=== PATIENT | female | born 1955 | race Asian ===

== ENCOUNTER 2019-11-15 11:53 | Outpatient (REF) | payer OTHER, SELFPAY | END 2019-11-15 11:54 | disposition home or self-care (01) | LOC: HO.LNP 11:53 | PROVIDERS: Visit Provider Nurse Practitioner Family | DX: R50.9 Fever, unspecified (principal); R53.83 Other fatigue; Z20.828 Contact with and (suspected) exposure to other viral communicable diseases | CPT/HCPCS: 87635 ==

== ENCOUNTER 2019-12-08 08:28 | Outpatient (REF) | payer OTHER, SELFPAY ==
[2019-12-08 11:37] LABS: Estimated Average Glucose 143 mg/dL; Hemoglobin A1c % 6.6 %
[2019-12-08 11:43] LABS: Alanine Aminotransferase 11 U/L (0-31); Anion Gap 14 (12-20); Aspartate Amino Transferase 15 U/L (5-31); Blood Urea Nitrogen 16 mg/dL (9-16); Calcium 9.4 mg/dL (8.4-10.2); Carbon Dioxide 29 mmol/L (22-29); Chloride 101 mmol/L (96-108); Cholesterol 228 mg/dL; Estimated Glomerular Filt Rate > 60; Glucose Fasting 134 mg/dL (60-99); HDL Cholesterol 59 mg/dL; LDL Cholesterol Calculated 139 mg/dl; Potassium 4.5 mmol/l (3.3-5.1); Sodium 139 mmol/L (135-145); Triglycerides 152 mg/dL
[2019-12-08 12:05] LABS: Vitamin D 25-OH Total 85.5 ng/mL (>30)
== END 2019-12-08 08:29 | disposition home or self-care (01) ==
LOC: HO.HMGCLDS 08:28
PROVIDERS: PCP Internal Medicine; Visit Provider Internal Medicine
DX: E11.9 Type 2 diabetes mellitus without complications (principal); E78.5 Hyperlipidemia, unspecified; I10 Essential (primary) hypertension; Z78.0 Asymptomatic menopausal state
CPT/HCPCS: 80048; 80061; 82306; 83036; 84450; 84460

== ENCOUNTER 2020-04-24 08:18 | Outpatient (REF) | payer OTHER, SELFPAY ==
[2020-04-24 11:31] LABS: Estimated Average Glucose 146 mg/dL; Hemoglobin A1c % 6.7 %
[2020-04-24 11:49] LABS: Alanine Aminotransferase 10 U/L (0-31); Anion Gap 14 (12-20); Aspartate Amino Transferase 15 U/L (5-31); Blood Urea Nitrogen 16 mg/dL (9-16); Calcium 9.4 mg/dL (8.4-10.2); Carbon Dioxide 28 mmol/L (22-29); Chloride 102 mmol/L (96-108); Cholesterol 205 mg/dL; Estimated Glomerular Filt Rate > 60; Glucose Fasting 130 mg/dL (60-99); HDL Cholesterol 57 mg/dL; LDL Cholesterol Calculated 117 mg/dl; Potassium 4.4 mmol/L (3.3-5.1); Sodium 140 mmol/L (135-145); Triglycerides 157 mg/dL
[2020-04-24 11:59] LABS: Vitamin D 25-OH Total 69.9 ng/mL (>30)
[2020-04-24 12:06] LABS: Creatinine Urine 128.71 mg/dL; Microalbum/Creatinine Ratio Ur 10.8 ug/mg cr
== END 2020-04-24 08:19 | disposition home or self-care (01) ==
LOC: HO.HMGCLDS 08:18
PROVIDERS: PCP Internal Medicine; Visit Provider Internal Medicine
DX: I10 Essential (primary) hypertension (principal); E78.5 Hyperlipidemia, unspecified; E11.9 Type 2 diabetes mellitus without complications
CPT/HCPCS: 36415; 80048; 80061; 82043; 82306; 83036; 84450; 84460

== ENCOUNTER 2020-08-02 08:01 | Outpatient (REF) | payer OTHER, SELFPAY ==
[2020-08-02 11:44] LABS: Estimated Average Glucose 151 mg/dL; Hemoglobin A1c % 6.9 %
[2020-08-02 11:55] LABS: Alanine Aminotransferase 10 U/L (0-31); Anion Gap 15 (12-20); Aspartate Amino Transferase 15 U/L (5-31); Blood Urea Nitrogen 17 mg/dL (9-16); Calcium 9.7 mg/dL (8.4-10.2); Carbon Dioxide 25 mmol/L (22-29); Chloride 105 mmol/L (96-108); Cholesterol 171 mg/dL; Estimated Glomerular Filt Rate > 60; Glucose Fasting 136 mg/dL (60-99); HDL Cholesterol 66 mg/dL; LDL Cholesterol Calculated 85 mg/dl; Sodium 141 mmol/L (135-145); Triglycerides 102 mg/dL
[2020-08-02 12:04] LABS: Vitamin D 25-OH Total 62.9 ng/mL (>30)
[2020-08-02 12:21] LABS: Folate 17.2 ng/mL (> or = 4.0); Vitamin B12 1400 pg/mL (200-900)
== END 2020-08-02 08:02 | disposition home or self-care (01) ==
LOC: HO.HMGCLDS 08:01
PROVIDERS: PCP Internal Medicine; Visit Provider Internal Medicine
DX: E78.5 Hyperlipidemia, unspecified (principal); E11.9 Type 2 diabetes mellitus without complications; I10 Essential (primary) hypertension
CPT/HCPCS: 36415; 80048; 80061; 82306; 82607; 82746; 83036; 84450; 84460

== ENCOUNTER 2020-10-20 12:05 | Outpatient (REF) | payer OTHER, SELFPAY ==
[2020-10-20 13:53] LABS: Estimated Average Glucose 194 mg/dL; Hemoglobin A1c % 8.4 %
== END 2020-10-20 12:06 | disposition home or self-care (01) ==
LOC: HO.HMGCLDS 12:05
PROVIDERS: PCP Internal Medicine; Visit Provider Internal Medicine
DX: I10 Essential (primary) hypertension (principal); E78.5 Hyperlipidemia, unspecified; E11.9 Type 2 diabetes mellitus without complications
CPT/HCPCS: 36415; 83036

== ENCOUNTER 2020-11-05 08:21 | Outpatient (REF) | payer OTHER, SELFPAY ==
[2020-11-05 12:00] LABS: Alanine Aminotransferase 13 U/L (0-31); Anion Gap 16 (12-20); Aspartate Amino Transferase 13 U/L (5-31); Blood Urea Nitrogen 9 mg/dL (9-16); Calcium 9.2 mg/dL (8.4-10.2); Carbon Dioxide 24 mmol/L (22-29); Chloride 103 mmol/L (96-108); Cholesterol 165 mg/dL; Estimated Glomerular Filt Rate > 60; Glucose Fasting 158 mg/dL (60-99); HDL Cholesterol 63 mg/dL; LDL Cholesterol Calculated 85 mg/dl; Potassium 4.1 mmol/L (3.3-5.1); Sodium 139 mmol/L (135-145); Triglycerides 89 mg/dL
== END 2020-11-05 08:22 | disposition home or self-care (01) ==
LOC: HO.HMGCLDS 08:21
PROVIDERS: PCP Internal Medicine; Visit Provider Internal Medicine
DX: E11.9 Type 2 diabetes mellitus without complications (principal); E78.5 Hyperlipidemia, unspecified; I10 Essential (primary) hypertension
CPT/HCPCS: 36415; 80048; 80061; 84450; 84460

== ENCOUNTER 2021-02-11 10:11 | Outpatient (REF) | payer MEDICARE, OTHER, SELFPAY ==
[2021-02-11 11:35] LABS: Estimated Average Glucose 160 mg/dL; Hemoglobin A1c % 7.2 %
== END 2021-02-11 10:12 | disposition home or self-care (01) ==
LOC: HO.HMGCLDS 10:11
PROVIDERS: PCP Internal Medicine; Visit Provider Internal Medicine
DX: E11.9 Type 2 diabetes mellitus without complications (principal)
CPT/HCPCS: 36415; 83036

== ENCOUNTER 2021-02-12 13:13 | Outpatient (REF) | payer MEDICARE, OTHER, SELFPAY ==
[2021-02-12 13:53] LABS: Appearance Urine CLEAR; Color Urine YELLOW; Glucose Urine UA NEG (NEG); Leukocyte Esterase Urine NEG (NEG); Nitrite Urine NEG (NEG); PH 5.5 (5.0-8.0); Specific Gravity - Urine 1.025 (1.005-1.025); Urine Blood NEG (NEG); Urine Ketones NEG (NEG); Urine Protein NEG (NEG-TRACE)
== END 2021-02-12 13:14 | disposition home or self-care (01) ==
LOC: HO.HMGCLNP 13:13
PROVIDERS: Visit Provider Internal Medicine
DX: R30.0 Dysuria (principal)
CPT/HCPCS: 81003

== ENCOUNTER 2021-12-11 08:43 | Outpatient (REF) | payer MEDICARE, OTHER, SELFPAY ==
[2021-12-11 12:24] LABS: Alanine Aminotransferase 25 U/L (0-31); Anion Gap 18 (12-20); Aspartate Amino Transferase 26 U/L (5-31); Blood Urea Nitrogen 15 mg/dL (9-16); Calcium 9.8 mg/dL (8.4-10.2); Carbon Dioxide 26 mmol/L (22-29); Chloride 102 mmol/L (96-108); Cholesterol 235 mg/dL; Estimated Glomerular Filt Rate > 60; Glucose Fasting 144 mg/dL (60-99); HDL Cholesterol 70 mg/dL; LDL Cholesterol Calculated 140 mg/dl; Potassium 4.7 mmol/L (3.3-5.1); Sodium 141 mmol/L (135-145); Triglycerides 127 mg/dL
[2021-12-11 12:35] LABS: Creatinine Urine 72.61 mg/dL; Microalbum/Creatinine Ratio Ur 17.9 ug/mg cr
[2021-12-11 12:36] LABS: Estimated Average Glucose 169 mg/dL; Hemoglobin A1c % 7.5 %
[2021-12-11 12:47] LABS: Vitamin D 25-OH Total 63.8 ng/mL (>30)
== END 2021-12-11 08:44 | disposition home or self-care (01) ==
LOC: HO.HMGCLDS 08:43
PROVIDERS: PCP Internal Medicine; Visit Provider Internal Medicine
DX: E11.65 Type 2 diabetes mellitus with hyperglycemia (principal); E78.5 Hyperlipidemia, unspecified; I10 Essential (primary) hypertension; M85.88 Other specified disorders of bone density and structure, other site
CPT/HCPCS: 36415; 80048; 80061; 82043; 82306; 83036; 84450; 84460

== ENCOUNTER 2022-03-25 07:23 | Outpatient (REF) | payer MEDICARE, OTHER, SELFPAY ==
[2022-03-25 11:49] LABS: Estimated Average Glucose 146 mg/dL; Hemoglobin A1c % 6.7 %
[2022-03-25 12:01] LABS: Alanine Aminotransferase 29 U/L (0-31); Anion Gap 15 (12-20); Aspartate Amino Transferase 24 U/L (5-31); Blood Urea Nitrogen 12 mg/dL (9-16); Calcium 9.6 mg/dL (8.4-10.2); Carbon Dioxide 24 mmol/L (22-29); Chloride 104 mmol/L (96-108); Cholesterol 212 mg/dL; Estimated Glomerular Filt Rate > 60; Glucose Fasting 159 mg/dL (60-99); HDL Cholesterol 59 mg/dL; LDL Cholesterol Calculated 134 mg/dl; Potassium 4.4 mmol/L (3.3-5.1); Sodium 139 mmol/L (135-145); Triglycerides 98 mg/dL
[2022-03-25 12:04] LABS: Vitamin D 25-OH Total 58.8 ng/mL (>30)
== END 2022-03-25 07:24 | disposition home or self-care (01) ==
LOC: HO.HMGCLDS 07:23
PROVIDERS: PCP Internal Medicine; Visit Provider Internal Medicine
DX: E78.5 Hyperlipidemia, unspecified (principal); I10 Essential (primary) hypertension; M85.88 Other specified disorders of bone density and structure, other site; N95.9 Unspecified menopausal and perimenopausal disorder; E11.65 Type 2 diabetes mellitus with hyperglycemia
CPT/HCPCS: 36415; 80048; 80061; 82306; 83036; 84450; 84460

== ENCOUNTER 2022-06-25 06:23 | Outpatient (REF) | payer MEDICARE, OTHER, SELFPAY ==
[2022-06-25 12:19] LABS: Estimated Average Glucose 166 mg/dL; Hemoglobin A1c % 7.4 %
[2022-06-25 12:56] LABS: Alanine Aminotransferase 40 U/L (0-31); Anion Gap 11 (12-20); Aspartate Amino Transferase 38 U/L (5-31); Blood Urea Nitrogen 10 mg/dL (9-16); Calcium 9.5 mg/dL (8.4-10.2); Carbon Dioxide 27 mmol/L (22-29); Chloride 107 mmol/L (96-108); Cholesterol 167 mg/dL; Estimated Glomerular Filt Rate > 60; Glucose Fasting 155 mg/dL (60-99); HDL Cholesterol 57 mg/dL; LDL Cholesterol Calculated 92 mg/dl; Potassium 4.2 mmol/L (3.3-5.1); Sodium 141 mmol/L (135-145); Triglycerides 91 mg/dL
== END 2022-06-25 06:24 | disposition home or self-care (01) ==
LOC: HO.HMGCLDS 06:23
PROVIDERS: PCP Internal Medicine; Visit Provider Internal Medicine
DX: E11.9 Type 2 diabetes mellitus without complications (principal); E78.5 Hyperlipidemia, unspecified
CPT/HCPCS: 36415; 80048; 80061; 83036; 84450; 84460

== ENCOUNTER 2022-12-19 07:15 | Outpatient (REF) | payer MEDICARE, OTHER, SELFPAY ==
[2022-12-19 11:59] LABS: Estimated Average Glucose 151 mg/dL; Hemoglobin A1c % 6.9 % (<6.0)
[2022-12-19 12:15] LABS: Alanine Aminotransferase 21 U/L (0-31); Anion Gap 12 (12-20); Aspartate Amino Transferase 23 U/L (5-31); Blood Urea Nitrogen 16 mg/dL (9-16); Calcium 9.2 mg/dL (8.4-10.2); Carbon Dioxide 26 mmol/L (22-29); Chloride 106 mmol/L (96-108); Cholesterol 163 mg/dL (<200); Estimated Glomerular Filt Rate > 60; Glucose Fasting 140 mg/dL (60-99); HDL Cholesterol 53 mg/dL (>40); LDL Cholesterol Calculated 91 mg/dL (<100); Potassium 4.2 mmol/L (3.3-5.1); Sodium 140 mmol/L (135-145); Triglycerides 96 mg/dL (<150)
[2022-12-19 12:28] LABS: Creatinine Urine 82.51 mg/dL; Microalbum/Creatinine Ratio Ur 9.6 ug/mg cr (<30)
[2022-12-19 12:50] LABS: Vitamin D 25-OH Total 87.2 ng/mL (>30)
== END 2022-12-19 07:16 | disposition home or self-care (01) ==
LOC: HO.HMGCLDS 07:15
PROVIDERS: PCP Internal Medicine; Visit Provider Internal Medicine
DX: E11.65 Type 2 diabetes mellitus with hyperglycemia (principal); I10 Essential (primary) hypertension; E78.5 Hyperlipidemia, unspecified; M85.88 Other specified disorders of bone density and structure, other site; Z78.0 Asymptomatic menopausal state
CPT/HCPCS: 36415; 80048; 80061; 82043; 82306; 82570; 83036; 84450; 84460

== ENCOUNTER 2022-12-22 09:35 | Outpatient (AMB) | payer MEDICARE, OTHER, SELFPAY ==
--- NOTE | 2022-12-22 09:41 | MHC.PC.OV ---
Vital Signs 12/22/22 09:42 Height 5 ft 1 in Weight 141 lb BMI 26.6 BP 138/80 Blood Pressure Location Lt brachial Position Sitting Pulse 79 Pulse Source Pulse Oximeter Pulse Oximetry (%) 97 Oxygen Delivery Method Room Air Intake Visit Reasons: PE/6m follow up Intake Note: Pt is here today for her PE Allergies acetaminophen [Percocet] Allergy (Unknown, Verified 12/22/22 10:00) anaphylaxis oxycodone [Percocet] Allergy (Unknown, Verified 12/22/22 10:00) anaphylaxis Medication List - Last Reconciled 12/22/22 by Karen Thompson MD ascorbic acid (vitamin C) 1 g PO ONCE blood sugar diagnostic (FreeStyle Lite Strips) Check fasting blood sugar twice a day blood sugar diagnostic (FreeStyle Lite Strips) check fasting glucose once a day calcium citrate 200 mg PO DAILY cholecalciferol (vitamin D3) 50 mcg PO DAILY lancets (FreeStyle Lancets) check fasting glucose once a day losartan 100 mg PO DAILY metformin 1,000 mg PO QPM metoprolol succinate ER 25 mg PO DAILY rosuvastatin 5 mg PO DAILY sitagliptin phos-metformin 100-1,000 mg ER (Janumet XR) 1 tab PO QAM 90 days zinc gluconate 50 mg PO DAILY Tobacco use date assessed: 12/22/22 Fall risk assessment: 1 Fall in past year Last assessed Fall Risk: 12/22/22 Dental Screening Dental Screen Date: 12/22/22 Did you have a dental visit in the last 12 months?: Yes Did you have a dental problem in the last 6 months where you did not have access to dental care?: No Was dental information given to patient?: Patient has dentist HPI PE/6m follow up HPI Details 67-year-old lady with history of breast cancer, has diabetes mellitus, hypertension, hyperlipidemia, and osteopenia lumbar spine, here today for a physical exam. She is overdue for screening mammogram, will be getting it scheduled when she comes [place] her [place] in [place] 2023; , is up-to-date with her screening colonoscopy due again for a recheck in 2027. She is up-to-date with her vaccines but has not yet had her COVID booster. Recent labs done showed hemoglobin A1c now at 6.9% and fasting lipids showing LDL cholesterol less than 100 mg/dL. Patient has been compliant with her medications and has been cutting back on her intake of carbs and junk food. She also has started exercising again . Complains of recurrent heartburn symptoms, usually at night when lying down. Denies any blood in stool, no nausea or vomiting. Patient not taking any medication for this complaint. [facility] Medical History (Updated 12/22/22 @ 10:30 by Karen Thompson MD) Diabetes mellitus with hyperglycemia, without long-term current use of insulin Osteopenia of lumbar spine Rash and nonspecific skin eruption Allergic contact dermatitis due to dyes Skin lesion of scalp Carcinoma of right breast with ductal and lobular features Essential hypertension Dyslipidemia Type 2 diabetes mellitus without complication, with no history of insulin use Surgical History History of section History of lumpectomy of right breast Family History Father Cancer of prostate Mother HTN (hypertension) Diabetes mellitus Stroke Sister No problems noted. Daughter No problems noted. Brother No problems noted. Brother No problems noted. Brother No problems noted. Brother No problems noted. Brother No problems noted. Brother No problems noted. Social History Housing: House Alcohol intake: never Patient Tobacco Use Status: Never used Tobacco e-Cigarette/Vaping Use: Never Used Second Hand Smoke Exposure: No service: No Current occupational status: retired Cognitive needs: No Hearing needs: No Vision needs: Yes Questionnaire PHQ-9 Over the last 2 weeks, how often have you been bothered by any of the following problems? 1. Little interest or pleasure in doing things: not at all 2. Feeling down, depressed, or hopeless: not at all 3. Trouble falling or staying asleep, or sleeping too much: not at all 4. Feeling tired or having little energy: not at all 5. Poor appetite or overeating: not at all 6. Feeling bad about yourself - or that you are a failure or have let yourself or your family down: not at all 7. Trouble concentrating on things, such as reading the newspaper or watching television: not at all 8. Moving or speaking so slowly that other people could have noticed. Or the opposite - being so fidgety or restless that you have been moving around a lot more than usual: not at all 9. Thoughts that you would be better off or of hurting yourself in some way: not at all Total score: 0 Depression Screening Interpretation: Negative Depression Screening Done: Yes 43888 - PHQ-9 Billing: Yes Source: Developed by Drs. Jorge Be, Deon Ugalde and colleagues, with an educational michael from [email or web address]. Thrive Questionnaire Date Thrive assessed: 03/26/22 SAGE-7 AMB Questionnaire SAGE-7 Date SAGE - 7 assessed: 03/26/22 Source: Developed by Drs. Jorge Be, Nicole Rodriguez, Deon Malcolm and colleagues, with an educational michael from [email or web address]. Review of Systems Const Reports no additional complaints, Denies fatigue, Denies headache(s) and Denies weakness Eyes Details: Goes to [facility] for her diabetes retinopathy screening, goes yearly Denies change in vision, Denies eye discharge and Denies itchy eyes ENT Denies dizziness, Denies headache(s), Denies nasal congestion, Denies nasal discharge and Denies sore throat Card Denies chest pain, Denies lightheadedness, Denies palpitations and Denies dyspnea Resp Denies chest congestion, Denies cough, Denies dyspnea and Denies wheezing GI Denies abdominal pain, Denies change in bowel habits and Denies heartburn Denies urinary frequency, Denies dysuria and Denies urinary urgency Musc Reports no additional complaints Skin/Breast Denies lesions and Denies rash Neuro Denies dizziness, Denies headache(s) and Denies weakness Psych Reports no additional complaints Endo Denies fatigue, Denies polydipsia, Denies polyuria and Denies palpitations Robson/Lymph Denies easy bruising Aller/Immun Denies itchy eyes, Denies seasonal rhinorrhea and Denies wheezing Physical exam (Primary Care) Vital Signs: Last Vital Signs Pulse 79 12/22/22 09:42 BP 138/80 12/22/22 09:42 Pulse Ox 97 12/22/22 09:42 Oxygen Delivery Method Room Air 12/22/22 09:42 BMI result Body Mass Index 26.6 Tobacco/Smoking Status: Tobacco use Status Tobacco use date assessed 12/22/22 12/22/22 09:44 Patient Tobacco Use Status Never used Tobacco 12/22/22 09:44 e-Cigarette/Vaping Use Never Used 12/22/22 09:44 Depression Screening Interpretation: Negative Thrive Assessment: Date of Thrive Assessment Date Thrive assessed 03/26/22 12/22/22 09:44 Const General: cooperative, comfortable and no acute distress Orientation/consciousness: patient oriented x3 Limitations: no limitations HENMT Mouth: Normal oral and palatal mucosa present, oropharynx normal and moist mucous membranes Eyes General: appearance normal, both eyes and all related structures Conjunctivae: conjunctivae normal Pupils: Equal, round and reactive pupils present EOM: EOMs intact bilaterally Neck Neck: Yes full ROM, Yes no lymphadenopathy and Yes supple Chest Chest palpation & inspection: normal inspection of the chest Breast/axilla palpation: normal palpation of the breasts Resp Effort & Inspection: normal respiratory effort and able to speak in complete sentences Auscultation: clear to auscultation bilaterally Cardio Rate: regular rate Rhythm: regular rhythm Heart sounds: S1 normal heart sound present and S2 normal heart sound present GI Inspection: Yes normal to inspection Palpation (GI): Soft to palpation, nontender and no masses Auscultation: normal bowel sounds General: Yes no CVA tenderness and Yes deferred Back/Spine/Pelvis Back: no CVA tenderness and No back tenderness Skin General skin exam: no rashes or lesions noted Neuro General: patient oriented x3, gait normal, tone normal, moves all extremities, Normal light touch and pain sensation, no focal motor deficits and normal sensation to monofilament Cranial nerves: Yes Equal, round and reactive pupils present Cognition (Neuro): normal cognition Gait exam (Neuro): Normal gait present Motor exam (neuro): 5/5 motor strength present throughout Extrem General: Yes full ROM, Yes no joint enlargement, Yes no clubbing, cyanosis or edema, Yes no calf tenderness and Yes normal gait Psych Appearance: grossly normal and well kempt Mental Status: mental status grossly normal Speech and movement: Normal speech and movement present Affect: normal affect Attitude: cooperative Thought process: Normal thought process present Results Reviewed Results Reviewed: Name: Annmarie Jefferson Age/Sex: 67/F : 1955 Unit#: [id number] Attend Dr: Karen Thompson MD Re12/19/22 Status: DEP REF Location: [id number] Disch: SPEC : [id number] NEIDA: 12/19/22 STATUS: COMP REQ : [id number] RECD: 12/19/22-[address]: Karen Thompson MD COMP: 12/19/220 ENTERED: 12/19/22 [facility] DR: ORDERED: Met Prof Fast, AST, ALT, Lipid Panel, Vitamin D 25-OH Test Result Flag Reference Site Sodium 140 135-145 mmol/L Potassium 4.2 3.3-5.1 mmol/L CL 106 96-108 mmol/L CO2 26 22-29 mmol/L Gap 12 12-20 BUN 16 9-16 mg/dL Creat 0.77 0.5-1.4 mg/dL EGFR > 60 NOTE: For -[place] individuals, multiply the result by 1.210. Chronic Kidney Disease: Estimated GFR < 60 mL/min/1.73m2 Severe Kidney Disease: Estimated GFR < 15 mL/min/1.73m2 FBS 140 H 60-99 mg/dL A fasting glucose of 126 mg/dl or greater on more than one occasion is considered diagnostic of diabetes. CA 9.2 8.4-10.2 mg/dL AST (GOT) 23 5-31 U/L ALT (GPT) 21 0-31 U/L Triglyceride 96 <150 mg/dL Desirable Triglyceride: less than 150 mg/dL Borderline High Triglyceride 150-199 mg/dL High Triglyceride: 200-499 mg/dL Very High Triglyceride: greater than or equal to 5OO mg/dL Cholesterol 163 <200 mg/dL Desirable Cholesterol: less than 200 mg/dL Borderline High Cholesterol: 200-239 mg/dL High Cholesterol: greater than 239 mg/dL LDL Calculated 91 <100 mg/dL Desirable LDL: less than 100 mg/dL Near Optimal/Above Optimal LDL: 110-129 mg/dL Borderline High LDL: 130-159 mg/dL High LDL: 160-189 mg/dL Very High LDL: greater than or equal to 190 mg/dL HDL 53 >40 mg/dL Desirable HDL: greater than 40 mg/dL Note: This HDL assay may give artificially low results in patients with liver disease. Vit D 25-OH Tot 87.2 >30 ng/mL Health Based Reference Values* < 20 ng/mL Deficient 20-30 ng/mL Insufficient > 30 ng/mL Sufficient Laboratory Tests 12/19/22 12/19/22 07:20 07:25 Estimat Average Glucose 151 Hemoglobin A1c % 6.9 H Urine Creatinine 82.51 Urine Microalbumin 8.0 Microalb/Creat Ratio 9.6 Assessment and Plan Assessment & Plan (1) Type 2 diabetes mellitus without complication, with no history of insulin use: Code(s): E11.9 - Type 2 diabetes mellitus without complications Plan: Recent lab results reviewed with patient, with sugar and hemoglobin A1c stable and at goal. Continue with metformin 1000 mg at night with supper and Janumet XR 1 tablet in a.m. with breakfast, continue to check fasting blood sugar at home, maintain log and bring to next appointment for review. Reinforced diabetic diet and regular exercise with patient. Counseled regarding importance of yearly diabetes retinopathy screening. Patient advised to inspect feet daily, for any signs of injury, callus or infection. Compliance with diet and regular exercise again stressed. Blood pressure goal is less than 130/80, goal LDL is less than 100 and goal hemoglobin A1c is less than 7% follow-up appointment made in--3-months, after fasting labs done. (2) Essential hypertension: Code(s): I10 - Essential (primary) hypertension Plan: Blood pressure goal is less than 130/80. Continue with metoprolol succinate ER 25 mg daily and losartan 100 mg daily. Reinforced importance of following a low sodium diet, getting regular exercise, and lowering stress levels. (3) Dyslipidemia: Code(s): E78.5 - Hyperlipidemia, unspecified Plan: Reviewed recent fasting lipid profile with patient with levels . Continue with rosuvastatin 5 mg daily , in addition to adherence to low-cholesterol diet and regular exercise, at least 30 minutes 3 to 4 times a week. Advised patient to make healthy food choices, eat more fruits, vegetables, whole grains, wild caught fish and low-fat dairy. Limit amount of meat and fried or fatty food products, as well as processed foods and fast foods. Follow-up scheduled with repeat fasting lipid panel in 3 months. (4) Annual visit for general adult medical examination with abnormal findings: Code(s): Z00.01 - Encounter for general adult medical examination with abnormal findings Plan: Recent fasting labs reviewed with patient.. Recommended dental visit every 6 months and regular eye exams, once a year. Take adequate calcium in diet and vitamin-D 3 at 2000 IU per cap once a day, in addition to weight-bearing exercises to help maintain good muscle tone and weight control. Instructed to do self-breast exam, and recommended to get yearly mammogram. Up-to-date with her screening colonoscopy. Reminded to get her COVID booster, up-to-date with her flu vaccine and pneumonia vaccine. A prescription was also written for her for Paxil her when she goes a broad, just in case she contracts COVID while traveling. Discussed with patient proper use of the medication, and discussed possible side effects of medication might ensue. Advised to reserve taking the medication only for severe clinical symptoms. (5) Osteopenia of lumbar spine: Code(s): M85.88 - Other specified disorders of bone density and structure, other site Plan: Continue with regular weight-bearing exercise, take adequate calcium from dietary sources, continue taking vitamin-D 3 supplements at least 2000 units daily. Orders: Orders Alanine Aminotransferase 04/06/23 E11.9 - Type 2 diabetes mellitus without complications, E78.5 - Hyperlipidemia, unspecified, I10 - Essential (primary) hypertension Basic Metabolic Panel Fasting 04/06/23 E11.9 - Type 2 diabetes mellitus without complications, E78.5 - Hyperlipidemia, unspecified, I10 - Essential (primary) hypertension Lipid Panel 04/06/23 E11.9 - Type 2 diabetes mellitus without complications, E78.5 - Hyperlipidemia, unspecified, I10 - Essential (primary) hypertension Hemoglobin A1c 04/06/23 E11.9 - Type 2 diabetes mellitus without complications, E78.5 - Hyperlipidemia, unspecified, I10 - Essential (primary) hypertension Aspartate Amino Transferase 04/06/23 E11.9 - Type 2 diabetes mellitus without complications, E78.5 - Hyperlipidemia, unspecified, I10 - Essential (primary) hypertension Medications: New nirmatrelvir-ritonavir 300 mg (150 mg x 2)-100 mg (Paxlovid) take TWO 150 mg tablets of nirmatrelvir with ONE 100 mg tablet of ritonavir twice daily for 5 days PO 30 ea 0RF famotidine 40 mg PO BEDTIME 90 tabs 0RF Refilled metoprolol succinate ER 25 mg PO DAILY 90 tabs 1RF losartan 100 mg PO DAILY 90 tabs 1RF Coding Level of Care Code Est Pt Prev Care >65y(63428) Diagnoses Type 2 diabetes mellitus without complication, with no history of insulin use E11.9 Essential hypertension I10 Dyslipidemia E78.5 Annual visit for general adult medical examination with abnormal findings Z00.01 Osteopenia of lumbar spine M85.88
[2022-12-22 09:42] VITALS: BP 138/80; PULSE 79; O2SAT 97; BMI 26.6
== END 2022-12-22 11:09 | disposition home or self-care (01) ==
PROVIDERS: Visit Provider Internal Medicine
DX: Z00.00 Encounter for general adult medical examination without abnormal findings (principal); E11.9 Type 2 diabetes mellitus without complications; I10 Essential (primary) hypertension; E78.5 Hyperlipidemia, unspecified; M85.88 Other specified disorders of bone density and structure, other site
CPT/HCPCS: 99397

== ENCOUNTER 2023-07-10 07:04 | Outpatient (REF) | payer MEDICARE, OTHER, SELFPAY ==
[2023-07-10 10:40] LABS: Estimated Average Glucose 174 mg/dL; Hemoglobin A1c % 7.7 % (<6.0)
[2023-07-10 10:48] LABS: Alanine Aminotransferase 20 U/L (0-31); Anion Gap 15 (12-20); Aspartate Amino Transferase 20 U/L (5-31); Blood Urea Nitrogen 18 mg/dL (9-16); Calcium 9.4 mg/dL (8.4-10.2); Carbon Dioxide 22 mmol/L (22-29); Chloride 107 mmol/L (96-108); Cholesterol 180 mg/dL (<200); Estimated Glomerular Filt Rate > 60; Glucose Fasting 165 mg/dL (60-99); HDL Cholesterol 57 mg/dL (>40); LDL Cholesterol Calculated 101 mg/dL (<100); Potassium 4.1 mmol/L (3.3-5.1); Sodium 140 mmol/L (135-145); Triglycerides 113 mg/dL (<150)
== END 2023-07-10 07:05 | disposition home or self-care (01) ==
LOC: HO.HMGCLDS 07:04
PROVIDERS: PCP Internal Medicine; Visit Provider Internal Medicine
DX: E11.9 Type 2 diabetes mellitus without complications (principal); I10 Essential (primary) hypertension; E78.5 Hyperlipidemia, unspecified
CPT/HCPCS: 36415; 80048; 80061; 83036; 84450; 84460

== ENCOUNTER 2023-07-15 08:26 | Outpatient (AMB) | payer MEDICARE, OTHER, SELFPAY ==
--- NOTE | 2023-07-15 08:50 | A.OFFPC_ITS ---
Vital Signs 07/15/23 08:51 Height 5 ft 1 in Weight 140 lb BMI 26.4 BP 132/80 Blood Pressure Location Rt brachial Position Sitting Pulse 77 Pulse Source Pulse Oximeter Pulse Oximetry (%) 97 Oxygen Delivery Method Room Air Intake Visit Reasons: PE Intake Note: Pt is here today for her PE: colonscopy 08/06/17, mammogram 04/20/23: bone density scan 02/19/21 Allergies acetaminophen [Percocet] Allergy (Unknown, Verified 12/08/23 15:48) anaphylaxis oxycodone [Percocet] Allergy (Unknown, Verified 12/08/23 15:48) anaphylaxis Medication List - Last Reconciled 07/15/23 by Karen Thompson MD ascorbic acid (vitamin C) 1 g PO ONCE blood sugar diagnostic (FreeStyle Lite Strips) Check fasting blood sugar twice a day blood sugar diagnostic (FreeStyle Lite Strips) check fasting glucose once a day calcium citrate 200 mg PO DAILY cholecalciferol (vitamin D3) 50 mcg PO DAILY Jardiance (empagliflozin) 10 mg PO DAILY NS lancets (FreeStyle Lancets) check fasting glucose once a day losartan 100 mg PO DAILY magnesium 250 mg PO DAILY metformin 1,000 mg PO QPM metoprolol succinate ER 25 mg PO DAILY rosuvastatin 5 mg PO DAILY sitagliptin phos-metformin 100-1,000 mg ER (Janumet XR) 1 tab PO QAM 90 days zinc gluconate 50 mg PO DAILY Tobacco use date assessed: 07/15/23 Fall risk assessment: No Falls in past year Last assessed Fall Risk: 07/15/23 Dental Screening Dental Screen Date: 07/15/23 Did you have a dental visit in the last 12 months?: Yes Did you have a dental problem in the last 6 months where you did not have access to dental care?: No Was dental information given to patient?: Patient has dentist HPI PE HPI Details 68-year-old lady here today for physical exam. She has diabetes mellitus with latest hemoglobin A1c at 7.7%. Currently on metformin a 1000 mg at night and Janumet 100-1000 mg in the morning. Has not been very compliant with her diet and no exercise at all.. Up-to-date with her diabetes retinopathy screening, goes to [facility] with no retinopathy seen. She has hyperlipidemia, takes rosuvastatin 5 mg 1 tablet 3 times a week, unable to take it every day as she has started experiencing seen muscle pains when she takes it daily. Up-to-date with her screening colonoscopy not due again until 2027 Had a bone density scan done 02/19/2021 which showed beginning osteopenia in AP spine with a T-score of -1.1, normal in hip and thigh. 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 Daughter No problems noted. Brother No problems noted. Brother No problems noted. Brother No problems noted. Brother No problems noted. Brother No problems noted. Brother No problems noted. Social History Housing: House Alcohol intake: never Patient Tobacco Use Status: Never used Tobacco e-Cigarette/Vaping Use: Never Used Second Hand Smoke Exposure: No service: No Current occupational status: retired Cognitive needs: No Hearing needs: No Vision needs: Yes Questionnaire PHQ-9 Over the last 2 weeks, how often have you been bothered by any of the following problems? 1. Little interest or pleasure in doing things: not at all 2. Feeling down, depressed, or hopeless: not at all 3. Trouble falling or staying asleep, or sleeping too much: not at all 4. Feeling tired or having little energy: not at all 5. Poor appetite or overeating: not at all 6. Feeling bad about yourself - or that you are a failure or have let yourself or your family down: not at all 7. Trouble concentrating on things, such as reading the newspaper or watching television: not at all 8. Moving or speaking so slowly that other people could have noticed. Or the opposite - being so fidgety or restless that you have been moving around a lot more than usual: not at all 9. Thoughts that you would be better off or of hurting yourself in some way: not at all Total score: 0 Depression Screening Interpretation: Negative Depression Screening Done: Yes 95690 - PHQ-9 Billing: Yes Source: Developed by Drs. Jorge Be, Nicole Rodriguez, Deon Malcolm and colleagues, with an educational michael from [employer]. Thrive Questionnaire Date Thrive assessed: 07/15/23 I am a: Patient What is your living situation today?: I have a steady place to live Within the past 12 months, did the food you bought not last and you didn't have the money to get more?: Never true Within the past 12 months, did you worry whether your food would run out before you got money to buy more?: Never true Do you have trouble paying for medicines?: No Do you have trouble getting transportation to medical appointments?: No Do you have trouble paying your heating and electricity bill?: No Do you have trouble taking care of your child, family member or friend?: No Are you currently unemployed and looking for a job?: No Are you interested in more education?: No THRIVE Score: 0 AUDIT C Alcohol Use Questionnaire (AUDIT-C) 1. How often do you have a drink containing alcohol?: Never Total Score: 0 SAGE-7 AMB Questionnaire SAGE-7 Date SAGE - 7 assessed: 07/15/23 Feeling nervous, anxious, or on edge: 0 = Not at all Not being able to stop or control worryin = Not at all Worrying too much about different things: 0 = Not at all Trouble relaxin = Not at all Being so restless that it is hard to sit still: 0 = Not at all Becoming easily annoyed or irritable: 0 = Not at all Feeling afraid as if something awful might happen: 0 = Not at all Total SAGE-7 score (0-4 normal; 5-9 mild; 10-14 moderate; 15-21 severe): 0 Source: Developed by Drs. Jorge Be, Deon Ugalde and colleagues, with an educational michael from [employer]. SAGE-7 Assessment Billing SAGE-7 Assessment Tool: SAGE-7 Assessment 22737 Review of Systems Const Denies fatigue, Denies headache(s) and Denies weakness Eyes Details: Goes to [facility] for her diabetes retinopathy screening, goes yearly Denies change in vision, Denies eye discharge and Denies itchy eyes ENT Denies dizziness, Denies headache(s), Denies nasal congestion, Denies nasal discharge and Denies sore throat Card Denies chest pain, Denies lightheadedness, Denies palpitations and Denies dyspnea Resp Denies chest congestion, Denies cough, Denies dyspnea and Denies wheezing GI Denies abdominal pain, Denies change in bowel habits and Denies heartburn Denies urinary frequency, Denies dysuria and Denies urinary urgency Musc Reports no additional complaints Skin/Breast Denies lesions and Denies rash Neuro Denies dizziness, Denies headache(s) and Denies weakness Psych Reports no additional complaints Endo Denies fatigue, Denies polydipsia, Denies polyuria and Denies palpitations Robson/Lymph Denies easy bruising Aller/Immun Denies itchy eyes, Denies seasonal rhinorrhea and Denies wheezing Physical exam (Primary Care) Vital Signs: Last Vital Signs Pulse 77 07/15/23 08:51 BP 132/80 07/15/23 08:51 Pulse Ox 97 07/15/23 08:51 Oxygen Delivery Method Room Air 07/15/23 08:51 BMI result Body Mass Index 26.4 Tobacco/Smoking Status: Tobacco use Status Tobacco use date assessed 07/15/23 07/15/23 08:56 Patient Tobacco Use Status Never used Tobacco 07/15/23 08:56 e-Cigarette/Vaping Use Never Used 07/15/23 08:56 PHQ-9: PHQ-9 Score PHQ-9: Total score 0 07/15/23 09:45 Depression Screening Interpretation: Negative Thrive Assessment: Date of Thrive Assessment Date Thrive assessed 07/15/23 07/15/23 09:14 Const General: cooperative, comfortable and no acute distress Orientation/consciousness: patient oriented x3 HENMT Mouth: Normal oral and palatal mucosa present, oropharynx normal and moist mucous membranes Eyes General: appearance normal, both eyes and all related structures Conjunctivae: conjunctivae normal Pupils: Equal, round and reactive pupils present EOM: EOMs intact bilaterally Neck Neck: Yes full ROM, Yes no lymphadenopathy and Yes supple Chest Chest palpation & inspection: normal inspection of the chest Breast/axilla palpation: normal palpation of the breasts Resp Effort & Inspection: normal respiratory effort and able to speak in complete sentences Auscultation: clear to auscultation bilaterally Cardio Rate: regular rate Rhythm: regular rhythm Heart sounds: S1 normal heart sound present and S2 normal heart sound present GI Inspection: Yes normal to inspection Palpation (GI): Soft to palpation, nontender and no masses Auscultation: normal bowel sounds General: Yes no CVA tenderness and Yes deferred Back/Spine/Pelvis Back: no CVA tenderness and No back tenderness Skin General skin exam: no rashes or lesions noted Neuro General: patient oriented x3, gait normal, tone normal, moves all extremities, Normal light touch and pain sensation, no focal motor deficits and normal sensation to monofilament Cranial nerves: Yes Equal, round and reactive pupils present Cognition (Neuro): normal cognition Gait exam (Neuro): Normal gait present Motor exam (neuro): 5/5 motor strength present throughout Extrem General: Yes full ROM, Yes no joint enlargement, Yes no clubbing, cyanosis or edema, Yes no calf tenderness and Yes normal gait Psych Appearance: grossly normal Mental Status: mental status grossly normal Speech and movement: Normal speech and movement present Affect: normal affect Attitude: cooperative Thought process: Normal thought process present Thought content: Normal thought content present Results Reviewed Results Reviewed: Laboratory Tests 07/10/23 07:22 Estimat Average Glucose 174 Hemoglobin A1c % 7.7 H Name: Annmarie Jefferson Age/Sex: 68/F : 1955 Unit#: [id number] Attend Dr: Karen Thompson MD Re07/10/23 Status: DEP REF Location: [facility] Disch: SPEC : [id number] NEIDA: 07/10/23 STATUS: COMP REQ : [id number] RECD: 07/10/23-[address]: Karen Thompson MD COMP: 07/10/238 ENTERED: 07/10/[address]: ORDERED: Met Prof Fast, AST, ALT, Lipid Panel Test Result Flag Reference Sodium 140 135-145 mmol/L Potassium 4.1 3.3-5.1 mmol/L CL 107 96-108 mmol/L CO2 22 22-29 mmol/L Gap 15 12-20 BUN 18 H 9-16 mg/dL Creat 0.80 0.5-1.4 mg/dL EGFR > 60 NOTE: For -[place] individuals, multiply the result by 1.210. Chronic Kidney Disease: Estimated GFR < 60 mL/min/1.73m2 Severe Kidney Disease: Estimated GFR < 15 mL/min/1.73m2 FBS 165 H 60-99 mg/dL A fasting glucose of 126 mg/dl or greater on more than one occasion is considered diagnostic of diabetes. CA 9.4 8.4-10.2 mg/dL AST (GOT) 20 5-31 U/L ALT (GPT) 20 0-31 U/L Triglyceride 113 <150 mg/dL Desirable Triglyceride: less than 150 mg/dL Borderline High Triglyceride 150-199 mg/dL High Triglyceride: 200-499 mg/dL Very High Triglyceride: greater than or equal to 5OO mg/dL Cholesterol 180 <200 mg/dL Desirable Cholesterol: less than 200 mg/dL Borderline High Cholesterol: 200-239 mg/dL High Cholesterol: greater than 239 mg/dL LDL Calculated 101 H <100 mg/dL Desirable LDL: less than 100 mg/dL Near Optimal/Above Optimal LDL: 110-129 mg/dL Borderline High LDL: 130-159 mg/dL High LDL: 160-189 mg/dL Very High LDL: greater than or equal to 190 mg/dL HDL 57 >40 mg/dL Desirable HDL: greater than 40 mg/dL Coding Level of Care Code Est Pt Prev Care >65y(64651) Diagnoses Annual visit for general adult medical examination with abnormal findings Z00.01 Type 2 diabetes mellitus without complication, with no history of insulin use E11.9 Dyslipidemia E78.5 Essential hypertension I10 Osteopenia of lumbar spine M85.88 Additional Codes SAGE-7 Assessment Billing - SAGE-7 Assessment Tool: SAGE-7 Assessment 00576 ([id number])
[2023-07-15 08:51] VITALS: BP 132/80; PULSE 77; O2SAT 97; BMI 26.4
== END 2023-07-15 09:43 | disposition home or self-care (01) ==
PROVIDERS: PCP Internal Medicine; Visit Provider Internal Medicine
DX: Z00.00 Encounter for general adult medical examination without abnormal findings (principal); E11.69 Type 2 diabetes mellitus with other specified complication; E78.5 Hyperlipidemia, unspecified; I10 Essential (primary) hypertension; M85.88 Other specified disorders of bone density and structure, other site
CPT/HCPCS: 99397

== ENCOUNTER 2023-10-10 08:12 | Outpatient (REF) | payer MEDICARE, OTHER, SELFPAY ==
[2023-10-10 11:43] LABS: Estimated Average Glucose 154 mg/dL
[2023-10-10 11:45] LABS: Alanine Aminotransferase 18 U/L (0-31); Anion Gap 13 (12-20); Aspartate Amino Transferase 18 U/L (5-31); Blood Urea Nitrogen 23 mg/dL (9-16); Calcium 9.7 mg/dL (8.4-10.2); Carbon Dioxide 24 mmol/L (22-29); Chloride 107 mmol/L (96-108); Cholesterol 157 mg/dL (<200); Estimated Glomerular Filt Rate > 60; Glucose Fasting 131 mg/dL (60-99); HDL Cholesterol 57 mg/dL (>40); LDL Cholesterol Calculated 84 mg/dL (<100); Potassium 4.3 mmol/L (3.3-5.1); Sodium 140 mmol/L (135-145); Triglycerides 83 mg/dL (<150)
[2023-10-10 11:52] LABS: Vitamin D 25-OH Total 110.7 ng/mL (>30)
[2023-10-10 12:04] LABS: Creatinine Urine 82.24 mg/dL; Microalbum/Creatinine Ratio Ur 8.5 ug/mg cr (<30)
== END 2023-10-10 08:13 | disposition home or self-care (01) ==
LOC: HO.HMGCLDS 08:12
PROVIDERS: PCP Internal Medicine; Visit Provider Internal Medicine
DX: Z00.01 Encounter for general adult medical examination with abnormal findings (principal); E11.9 Type 2 diabetes mellitus without complications; M85.88 Other specified disorders of bone density and structure, other site; I10 Essential (primary) hypertension; E78.5 Hyperlipidemia, unspecified
CPT/HCPCS: 36415; 80048; 80061; 82043; 82306; 82570; 83036; 84450; 84460

== ENCOUNTER 2023-10-14 11:45 | Outpatient (AMB) | payer MEDICARE, OTHER, SELFPAY ==
[2023-10-14 12:10] VITALS: BP 130/70; PULSE 66; O2SAT 97; BMI 25.7
--- NOTE | 2023-10-14 12:10 | MHC.PC.OV ---
Vital Signs 10/14/23 12:10 Height 5 ft 1 in Weight 136 lb 2 oz BMI 25.7 BP 130/70 Blood Pressure Location Rt brachial Position Sitting Pulse 66 Pulse Source Pulse Oximeter Pulse Oximetry (%) 97 Oxygen Delivery Method Room Air Intake Visit Reasons: 3M F/U DM HTN Labs Allergies acetaminophen [Percocet] Allergy (Unknown, Verified 10/14/23 12:25) anaphylaxis oxycodone [Percocet] Allergy (Unknown, Verified 10/14/23 12:25) anaphylaxis Medication List - Last Reconciled 10/14/23 by Karen Thompson MD ascorbic acid (vitamin C) 1 g PO ONCE blood sugar diagnostic (FreeStyle Lite Strips) Check fasting blood sugar twice a day blood sugar diagnostic (FreeStyle Lite Strips) check fasting glucose once a day calcium citrate 200 mg PO DAILY cholecalciferol (vitamin D3) 50 mcg PO DAILY Jardiance (empagliflozin) 10 mg PO DAILY NS lancets (FreeStyle Lancets) check fasting glucose once a day losartan 100 mg PO DAILY magnesium 250 mg PO DAILY metformin 1,000 mg PO QPM metoprolol succinate ER 25 mg PO DAILY rosuvastatin 5 mg PO DAILY sitagliptin phos-metformin 100-1,000 mg ER (Janumet XR) 1 tab PO QAM 90 days zinc gluconate 50 mg PO DAILY Tobacco use date assessed: 07/15/23 Fall risk assessment: No Falls in past year Last assessed Fall Risk: 10/14/23 Dental Screening Dental Screen Date: 10/14/23 Did you have a dental visit in the last 12 months?: Yes Did you have a dental problem in the last 6 months where you did not have access to dental care?: No Was dental information given to patient?: Patient has dentist HPI 3M F/U DM HTN Labs HPI Details 68 year-old lady here today with PMHx for diabetes mellitus, hyperlipidemia, and hypertension , here today for her follow-up. She has been compliant with taking her medications, with latest hemoglobin A1c at 7.7%, better than last checked.. Currently on metformin a 1000 mg at night and Janumet 100-1000 mg in the morning. Has been trying hard to stick to her recommended diet and has started to exercise.. Up-to-date with her diabetes retinopathy screening, goes to [facility] with no retinopathy seen. She has hyperlipidemia, takes rosuvastatin 5 mg 1 tablet 3 times a week, and blood pressure stable controlled on losartan 100 mg daily together with metoprolol 25 mg daily. FORMERLY [facility], [facility] Medical History Diabetes mellitus with hyperglycemia, without long-term current use of insulin Osteopenia of lumbar spine Allergic contact dermatitis due to dyes Carcinoma of right breast with ductal and lobular features Essential hypertension Dyslipidemia Surgical History History of section History of lumpectomy of right breast Family History Father Cancer of prostate Mother HTN (hypertension) Diabetes mellitus Stroke Sister No problems noted. Daughter No problems noted. Brother No problems noted. Brother No problems noted. Brother No problems noted. Brother No problems noted. Brother No problems noted. Brother No problems noted. Social History Housing: House Alcohol intake: never Patient Tobacco Use Status: Never used Tobacco e-Cigarette/Vaping Use: Never Used Second Hand Smoke Exposure: No service: No Current occupational status: retired Cognitive needs: No Hearing needs: No Vision needs: Yes Questionnaire PHQ-9 Over the last 2 weeks, how often have you been bothered by any of the following problems? 1. Little interest or pleasure in doing things: not at all 2. Feeling down, depressed, or hopeless: not at all 3. Trouble falling or staying asleep, or sleeping too much: not at all 4. Feeling tired or having little energy: not at all 5. Poor appetite or overeating: not at all 6. Feeling bad about yourself - or that you are a failure or have let yourself or your family down: not at all 7. Trouble concentrating on things, such as reading the newspaper or watching television: not at all 8. Moving or speaking so slowly that other people could have noticed. Or the opposite - being so fidgety or restless that you have been moving around a lot more than usual: not at all 9. Thoughts that you would be better off or of hurting yourself in some way: not at all Total score: 0 Depression Screening Interpretation: Negative Depression Screening Done: Yes 11595 - PHQ-9 Billing: Yes Source: Developed by Drs. Jorge Be, Nicole Rodriguez, Deon Malcolm and colleagues, with an educational michael from [employer]. Thrive Questionnaire Date Thrive assessed: 07/15/23 I am a: Patient What is your living situation today?: I have a steady place to live Within the past 12 months, did the food you bought not last and you didn't have the money to get more?: I choose not to answer this question Within the past 12 months, did you worry whether your food would run out before you got money to buy more?: I choose not to answer this question Do you have trouble paying for medicines?: No Do you have trouble getting transportation to medical appointments?: No Do you have trouble paying your heating and electricity bill?: No Do you have trouble taking care of your child, family member or friend?: No Do you have trouble with day-to-day activities such as bathing, preparing meals, shopping, managing finances, etc.?: No Are you currently unemployed and looking for a job?: No Are you interested in more education?: No Please select the resources that you would like help with: None Currently or been in a relationship where the following occur: I choose not to answer THRIVE Score: 0 AUDIT C Alcohol Use Questionnaire (AUDIT-C) 1. How often do you have a drink containing alcohol?: Never Total Score: 0 SAGE-7 AMB Questionnaire SAGE-7 Date SAGE - 7 assessed: 07/15/23 Feeling nervous, anxious, or on edge: 0 = Not at all Not being able to stop or control worryin = Not at all Worrying too much about different things: 0 = Not at all Trouble relaxin = Not at all Being so restless that it is hard to sit still: 0 = Not at all Becoming easily annoyed or irritable: 0 = Not at all Feeling afraid as if something awful might happen: 0 = Not at all Total SAGE-7 score (0-4 normal; 5-9 mild; 10-14 moderate; 15-21 severe): 0 Source: Developed by Nicole Anderson Kurt Kroenke and colleagues, with an educational michael from [employer]. SAGE-7 Assessment Billing SAGE-7 Assessment Tool: SAGE-7 Assessment 05619 Review of Systems Const Denies fatigue, Denies headache(s) and Denies weakness Eyes Details: Goes to [facility] for her diabetes retinopathy screening, goes yearly Denies change in vision, Denies eye discharge and Denies itchy eyes ENT Denies dizziness, Denies headache(s), Denies nasal congestion, Denies nasal discharge and Denies sore throat Card Denies chest pain, Denies lightheadedness, Denies palpitations and Denies dyspnea Resp Denies chest congestion, Denies cough, Denies dyspnea and Denies wheezing GI Denies abdominal pain, Denies change in bowel habits and Denies heartburn Denies urinary frequency, Denies dysuria and Denies urinary urgency Musc Reports no additional complaints Skin/Breast Denies lesions and Denies rash Neuro Denies dizziness, Denies headache(s) and Denies weakness Psych Reports no additional complaints Endo Denies fatigue, Denies polydipsia, Denies polyuria and Denies palpitations Robson/Lymph Denies easy bruising Aller/Immun Denies itchy eyes, Denies seasonal rhinorrhea and Denies wheezing Physical exam (Primary Care) Vital Signs: Last Vital Signs Pulse 66 10/14/23 12:10 BP 130/70 10/14/23 12:10 Pulse Ox 97 10/14/23 12:10 Oxygen Delivery Method Room Air 10/14/23 12:10 BMI result Body Mass Index 25.7 Tobacco/Smoking Status: Tobacco use Status Tobacco use date assessed 07/15/23 10/14/23 12:10 Patient Tobacco Use Status Never used Tobacco 10/14/23 12:10 e-Cigarette/Vaping Use Never Used 10/14/23 12:10 PHQ-9: PHQ-9 Score PHQ-9: Total score 0 10/14/23 12:27 Depression Screening Interpretation: Negative Thrive Assessment: Date of Thrive Assessment Date Thrive assessed 07/15/23 10/14/23 12:10 Currently or been in a relationship where the following occur: I choose not to answer Const General: cooperative, comfortable and no acute distress Orientation/consciousness: patient oriented x3 HENMT Mouth: Normal oral and palatal mucosa present, oropharynx normal and moist mucous membranes Eyes General: appearance normal, both eyes and all related structures Conjunctivae: conjunctivae normal Pupils: Equal, round and reactive pupils present EOM: EOMs intact bilaterally Neck Neck: Yes full ROM, Yes no lymphadenopathy and Yes supple Chest Chest palpation & inspection: normal inspection of the chest Breast/axilla palpation: normal palpation of the breasts Resp Effort & Inspection: normal respiratory effort and able to speak in complete sentences Auscultation: clear to auscultation bilaterally Cardio Rate: regular rate Rhythm: regular rhythm Heart sounds: S1 normal heart sound present and S2 normal heart sound present GI Inspection: Yes normal to inspection Palpation (GI): Soft to palpation, nontender and no masses Auscultation: normal bowel sounds General: Yes no CVA tenderness and Yes deferred Back/Spine/Pelvis Back: no CVA tenderness and No back tenderness Skin General skin exam: no rashes or lesions noted Neuro General: patient oriented x3, gait normal, tone normal, moves all extremities, Normal light touch and pain sensation, no focal motor deficits and normal sensation to monofilament Cranial nerves: Yes Equal, round and reactive pupils present Cognition (Neuro): normal cognition Gait exam (Neuro): Normal gait present Motor exam (neuro): 5/5 motor strength present throughout Extrem General: Yes full ROM, Yes no joint enlargement, Yes no clubbing, cyanosis or edema, Yes no calf tenderness and Yes normal gait Results Reviewed Results Reviewed: Name: Annmarie Jefferson Age/Sex: 68/F : 1955 Unit#: [id number] Attend Dr: Karen Thompson MD Re10/10/23 Status: DEP REF Location: [facility] Disch: SPEC : [id number] NEIDA: 10/10/23 STATUS: COMP REQ : [id number] RECD: 10/10/23-[address]: Karen Thompson MD COMP: 10/10/23115 ENTERED: 10/10/[address]: ORDERED: Met Prof Fast, AST, ALT, Lipid Panel, Vitamin D 25-OH Test Result Flag Reference Sodium 140 135-145 mmol/L Potassium 4.3 3.3-5.1 mmol/L CL 107 96-108 mmol/L CO2 24 22-29 mmol/L Gap 13 12-20 BUN 23 H 9-16 mg/dL Creat 0.86 0.5-1.4 mg/dL EGFR > 60 NOTE: For -[place] individuals, multiply the result by 1.210. Chronic Kidney Disease: Estimated GFR < 60 mL/min/1.73m2 Severe Kidney Disease: Estimated GFR < 15 mL/min/1.73m2 FBS 131 H 60-99 mg/dL A fasting glucose of 126 mg/dl or greater on more than one occasion is considered diagnostic of diabetes. CA 9.7 8.4-10.2 mg/dL AST (GOT) 18 5-31 U/L ALT (GPT) 18 0-31 U/L Triglyceride 83 <150 mg/dL Desirable Triglyceride: less than 150 mg/dL Borderline High Triglyceride 150-199 mg/dL High Triglyceride: 200-499 mg/dL Very High Triglyceride: greater than or equal to 5OO mg/dL Cholesterol 157 <200 mg/dL Desirable Cholesterol: less than 200 mg/dL Borderline High Cholesterol: 200-239 mg/dL High Cholesterol: greater than 239 mg/dL LDL Calculated 84 <100 mg/dL Desirable LDL: less than 100 mg/dL Near Optimal/Above Optimal LDL: 110-129 mg/dL Borderline High LDL: 130-159 mg/dL High LDL: 160-189 mg/dL Very High LDL: greater than or equal to 190 mg/dL HDL 57 >40 mg/dL Desirable HDL: greater than 40 mg/dL Note: This HDL assay may give artificially low results in patients with liver disease. Vit D 25-OH Tot 110.7 >30 ng/mL Health Based Reference Values* < 20 ng/mL Deficient 20-30 ng/mL Insufficient > 30 ng/mL Sufficient Laboratory Tests 10/10/23 08:15 Estimat Average Glucose 154 Hemoglobin A1c % 7.0 H Urine Creatinine 82.24 Urine Microalbumin 7.0 Microalb/Creat Ratio 8.5 Assessment and Plan Assessment & Plan (1) Type 2 diabetes mellitus without complication, with no history of insulin use: Code(s): E11.9 - Type 2 diabetes mellitus without complications Plan: Improving glucose control now with hemoglobin A1c at 7.7%. Continue with current treatment, and stressed importance of adhering to recommended diet getting regular exercise. Up-to-date with her diabetes retinopathy screening. Will see her back for follow-up in 05/29/2024 after she gets back from the [facility] (2) Essential hypertension: Code(s): I10 - Essential (primary) hypertension Plan: Blood pressure at goal of less than 130/80. Continue with losartan and metoprolol succinate. Reinforced importance of following a low sodium diet, getting regular exercise, and lowering stress levels. (3) Dyslipidemia: Code(s): E78.5 - Hyperlipidemia, unspecified Plan: Reviewed recent fasting lipid profile with patient with levels within normal limits . Continue rosuvastatin 5 mg , in addition to adherence to low-cholesterol diet and regular exercise, at least 30 minutes 3 to 4 times a week. Advised patient to make healthy food choices, eat more fruits, vegetables, whole grains, wild caught fish and low-fat dairy. Limit amount of meat and fried or fatty food products, as well as processed foods and fast foods. Follow-up scheduled with repeat fasting lipid panel in 05/2024. Medications: Refilled Jardiance (empagliflozin) 10 mg PO DAILY 30 tabs 3RF NS Coding Level of Care Code Est Pt Level 4 (67083) Complex EM visit Add On G2211 Diagnoses Type 2 diabetes mellitus without complication, with no history of insulin use E11.9 Essential hypertension I10 Dyslipidemia E78.5 Additional Codes SAGE-7 Assessment Billing - SAGE-7 Assessment Tool: SAGE-7 Assessment 75413 ([id number])
== END 2023-10-14 12:45 | disposition home or self-care (01) ==
PROVIDERS: PCP Internal Medicine; Visit Provider Internal Medicine
DX: E11.69 Type 2 diabetes mellitus with other specified complication (principal); I10 Essential (primary) hypertension; E78.5 Hyperlipidemia, unspecified
CPT/HCPCS: 99214; G2211

== ENCOUNTER 2023-11-30 09:12 | Outpatient (AMB) | payer MEDICARE, OTHER, SELFPAY ==
--- NOTE | 2023-11-30 10:14 | AM.OFFWIN_ITS ---
Intake Vital Signs 11/30/23 10:20 Height 5 ft 1 in Weight 134 lb BMI 25.3 BP 138/70 Blood Pressure Location Rt brachial Position Sitting Pulse 92 Pulse Source Pulse Oximeter Temp 98.1 F Temp Source Oral Pulse Oximetry (%) 98 Oxygen Delivery Method Room Air Intake Visit Reasons: EP ear ache & throat can barely speak [phone] Intake Note: Patient here for bilat ear pain, and loss of voice which has been present for about 2 days. Patient Tobacco Use Status: Never used Tobacco Allergies acetaminophen [Percocet] Allergy (Unknown, Verified 11/30/23 10:15) anaphylaxis oxycodone [Percocet] Allergy (Unknown, Verified 11/30/23 10:15) anaphylaxis Do you need a note to return to daycare/school/sports/work: No HPI EP ear ache & throat can barely speak [phone] HPI Details This note is constructed using voice recognition software. While every effort has been made to ensure accuracy, import manager errors may have been included. The patient is a 68 year old female who presents to the clinic today with ear pain, and lost voice for the past 2 days. She denies fever, chills, cough, shortness of breath, body aches, she does note that she has allergies this time of year and has been taking her Zyrtec. She has had no other sick contacts. [facility] Medical History Diabetes mellitus with hyperglycemia, without long-term current use of insulin Osteopenia of lumbar spine Allergic contact dermatitis due to dyes Carcinoma of right breast with ductal and lobular features Essential hypertension Dyslipidemia Surgical History History of section History of lumpectomy of right breast Family History Father Cancer of prostate Mother HTN (hypertension) Diabetes mellitus Stroke Sister No problems noted. Daughter No problems noted. Brother No problems noted. Brother No problems noted. Brother No problems noted. Brother No problems noted. Brother No problems noted. Brother No problems noted. Social History Housing: House Alcohol intake: never Patient Tobacco Use Status: Never used Tobacco e-Cigarette/Vaping Use: Never Used Second Hand Smoke Exposure: No service: No Current occupational status: retired Cognitive needs: No Hearing needs: No Vision needs: Yes Review of Systems Const All systems reviewed & are unremarkable except as noted in HPI and below Physical Exam Vital Signs: Last Vital Signs Temp 98.1 F 11/30/23 10:20 Pulse 92 11/30/23 10:20 BP 138/70 11/30/23 10:20 Pulse Ox 98 11/30/23 10:20 Oxygen Delivery Method Room Air 11/30/23 10:20 BMI result Body Mass Index 25.3 Const General: cooperative, healthy appearing, comfortable and no acute distress Orientation/consciousness: patient oriented x3 Limitations: no limitations HEENT Head: Yes normal to inspection Ears: hearing grossly normal bilaterally, external ears normal and TM abnormal retracted General nose exam: Normal external nose present, No nasal discharge present and Abnormal mucous membranes and turbinates present boggy and pale Face and sinus: Yes normal facial exam and Yes sinuses nontender Mouth: Normal oral and palatal mucosa present and moist mucous membranes Throat: Yes tonsils normal, Yes uvula midline, Yes posterior oropharynx abnormal (Erythema), Yes postnasal drainage and Yes cobblestoning Eyes General: appearance normal, both eyes and all related structures Neck Neck: Yes normal visual inspection Resp Effort & Inspection: normal respiratory effort, able to speak in complete sentences, Actively coughing, no respiratory distress, not tachypneic, no tripod positioning and no use of accessory muscles Auscultation: clear to auscultation bilaterally Cardio Rate: regular rate Rhythm: regular rhythm Heart sounds: normal S1 and S2 Skin General skin exam: no rashes or lesions noted Neuro General: patient oriented x3 Extrem General: Yes normal to inspection and Yes no clubbing, cyanosis or edema Assessment & Plan Assessment & Plan (1) Allergic rhinitis: Code(s): J30.9 - Allergic rhinitis, unspecified Qualifiers: Allergic rhinitis trigger: pollen Allergic rhinitis seasonality: seasonal Qualified Code(s): J30.1 - Allergic rhinitis due to pollen Plan: Supportive measures encouraged and reviewed. Advised patient to try a Flonase nasal spray and second-generation antihistamine such as Zyrtec, Claritin, Marianne or similar. Consider expectorant therapy [id number] such as Mucinex. Advised consideration of sinus rinse if needed. Short burst of prednisone prescribed for symptomatic management, patient will try this if the [id number] measures are not effective. Advised patient to follow up with primary care provider with worsening or failure to resolve. Plan See above for full details and plan. Medications: New prednisone 40 mg (2 x 20 mg) PO DAILY 3 days 6 tabs 0RF Coding Level of Care Code Est Pt Level 3 (74365) Diagnoses Seasonal allergic rhinitis due to pollen J30.1 Allergic rhinitis trigger: pollen Allergic rhinitis seasonality: seasonal
[2023-11-30 10:20] VITALS: BP 138/70; PULSE 92; TEMP 36.7; O2SAT 98; BMI 25.3
== END 2023-11-30 10:43 | disposition home or self-care (01) ==
PROVIDERS: PCP Internal Medicine; Visit Provider Registered Nurse
DX: J30.1 Allergic rhinitis due to pollen (principal)

== ENCOUNTER → 2023-11-30 09:12 | Outpatient (BNVA) | payer MEDICARE, OTHER, SELFPAY | PROVIDERS: PCP Internal Medicine; Visit Provider Registered Nurse | DX: J30.1 Allergic rhinitis due to pollen (principal) | CPT/HCPCS: 99212 ==

== ENCOUNTER 2024-05-16 10:43 | Outpatient (REF) | payer MEDICARE, OTHER, SELFPAY ==
--- OUTSIDE RECORDS SUMMARY | 2024-05-16 12:42 | XMS_ITS | Patient Health Record ---
Author Organization [employer] [facility] Address [address] [place] [address] Care Team Providers Care Frame Wirer Name Role Phone JOSIE PAK MD Primary Care Provider Nayana Barraza Unavailable [phone] Allergies Allergen (clinical drug ingredient) Drug/Non Drug Allergy documented on EMR Reaction Allergy Type Onset Date Status acetaminophen / oxycodone PERCOSET (uncoded) DIFFICULTY BREATHING Allergy Active Reason For Referral No Information Medications Medication SIG (Take, Route, Fr equency, Duration) Notes Start Date End Date Status Aspirin EC 81MG 1 ORAL daily for -3 [facility] 12/30/2010 Active losartan 100MG 1 ORAL daily for -3 [facility] 06/06/2013 Active metFORMIN HCl 500MG 1 ORAL twice daily for -3 [facility] 05/11 Active Simvastatin 40MG 1 ORAL daily for -3 [facility] 12/30/2010 Active Vitamin D3 1000 IU 1 ORAL daily for -3 [facility] 12/30/2010 Active Calcium 1 tab Oral Active Januvia Active Problems Problem Type SNOMED Code ICD Code Onset Dates Problem Status W/U Status Risk Notes Problem Urinary incontinence (345710183) Unspecified urinary incontinence (R32) Active confirmed Problem SI - Stress incontinence (97216099) Stress incontinence (female) (male) (N39.3) Active confirmed Problem Malignant neoplasm of female breast (952705166) Malignant neoplasm of other specified sites of female breast (174.8) Active confirmed Diag Problem Type II diabetes mellitus without complication (581687807) Diabetes mellitus without mention of complication, type II or unspecified type, not stated as uncontrolled (250.00) Active confirmed Major Problem Hyperlipidemia (51523003) Other and unspecified hyperlipidemia (272.4) Active confirmed Major Problem Essential hypertension (30641097) Unspecified essential hypertension (401.9) Active confirmed Major Problem Menopausal symptom (80207709) Symptomatic menopausal or female climacteric states (627.2) Active confirmed Major Problem Postmenopausal atrophic vaginitis (59762501) Postmenopausal atrophic vaginitis (627.3) Active confirmed Diag Problem Gynecological examination normal (539352643208215) Routine gynecological examination (V72.31) Active confirmed Problem Screening for malignant neoplasm of colon (226454673) Special screening for malignant neoplasms, colon (V76.51) Active confirmed Major Plan Of Treatment Pending Test Test Name Order Date MAMMOGRAM, SCREENING 06/06/2014 Urinalysis 08/27/2017 COMPLETE URINALYSIS 08/27/2017 Insurance Providers Payer Name Payer Address Payer Phone Subscriber Number Group Number Insured Name Patient Relationship to Insured Coverage Start Date Coverage End Date [facility] [address] [facility] [place] [id number] [phone] [id number] NAOMI ELIZONDO Self - patient is the insured Medical (General) History Medical History History ICD Code Postmenopausal atrophic vaginitis 627.3 Malignant neoplasm of other specified [place] of female breast 174.8 Diabetes mellitus without me ntion of complication, type II or unspecified type, not stated as uncontrolled 250.00 Other and unspecified hyperlipidemia 272 .4 Unspecified essential hypertension 401.9 Symptomatic menopausal or female climact glory states 627.2 Surgical History Surgery Date(Month/Year) RT LUMPECTOMY - CANCER COLONOSCOPY Hospitalization History Reason Date(Month/Year) SEE SURGICAL HX 1 Vaginal Delivery
[2024-05-16 13:33] LABS: Estimated Average Glucose 160 mg/dL; Hemoglobin A1C 207.7141 umol/L; Hemoglobin A1c % 7.2 % (<6.0); Total Hemoglobin (HGBA1C) 3743.5749 umol/L
[2024-05-16 14:15] LABS: Creatinine Urine 103.33 mg/dL; Microalbum/Creatinine Ratio Ur 16.4 ug/mg cr (<30)
[2024-05-16 14:21] LABS: Anion Gap 12 (12-20)
[2024-05-16 14:26] LABS: Alanine Aminotransferase 22 U/L (0-31); Aspartate Amino Transferase 28 U/L (5-31); Blood Urea Nitrogen 20 mg/dL (9-16); Calcium 9.3 mg/dL (8.4-10.2); Carbon Dioxide 25 mmol/L (22-29); Chloride 108 mmol/L (96-108); Estimated Glomerular Filt Rate > 60; Glucose Fasting 128 mg/dL (60-99); Sodium 141 mmol/L (135-145)
== END 2024-05-16 10:44 | disposition home or self-care (01) ==
LOC: HO.HMGCLDS 10:43
PROVIDERS: PCP Internal Medicine; Visit Provider Internal Medicine
DX: E11.9 Type 2 diabetes mellitus without complications (principal); M85.88 Other specified disorders of bone density and structure, other site; I10 Essential (primary) hypertension; E78.5 Hyperlipidemia, unspecified
CPT/HCPCS: 36415; 80048; 82043; 82306; 82570; 83036; 84450; 84460

== ENCOUNTER 2024-05-17 09:16 | Outpatient (AMB) | payer MEDICARE, OTHER, SELFPAY ==
[2024-05-17 09:19] VITALS: BP 132/70; PULSE 77; RESP 16; O2SAT 98; BMI 25.7
--- NOTE | 2024-05-17 09:19 | MHC.PC.OV ---
Vital Signs 05/17/24 09:19 Height 5 ft 1 in Weight 136 lb BMI 25.7 BP 132/70 Blood Pressure Location Rt brachial Position Sitting Respiration 16 Pulse 77 Pulse Source Pulse Oximeter Pulse Oximetry (%) 98 Oxygen Delivery Method Room Air Intake Visit Reasons: 6M F/U DM HTN Labs Allergies acetaminophen [Percocet] Allergy (Unknown, Verified 05/23/24 03:10) anaphylaxis oxycodone [Percocet] Allergy (Unknown, Verified 05/23/24 03:10) anaphylaxis Medication List - Last Reconciled 05/23/24 by Karen Thompson MD ascorbic acid (vitamin C) 1 g PO ONCE blood sugar diagnostic (FreeStyle Lite Strips) Check fasting blood sugar twice a day blood sugar diagnostic (FreeStyle Lite Strips) check fasting glucose once a day calcium citrate 200 mg PO DAILY Janumet XR 100-1,000 mg (sitagliptin phos-metformin) 1 tab PO QAM 90 days NS Jardiance (empagliflozin) 25 mg PO DAILY NS lancets (FreeStyle Lancets) check fasting glucose once a day losartan 100 mg PO DAILY magnesium 250 mg PO DAILY metformin 1,000 mg PO BIDWMEAL 3 months metoprolol succinate ER 25 mg PO DAILY rosuvastatin 5 mg PO DAILY zinc gluconate 50 mg PO DAILY Tobacco use date assessed: 05/17/24 Fall risk assessment: No Falls in past year Last assessed Fall Risk: 05/17/24 Dental Screening Dental Screen Date: 05/17/24 Did you have a dental visit in the last 12 months?: Yes Did you have a dental problem in the last 6 months where you did not have access to dental care?: No Was dental information given to patient?: Patient has dentist HPI 6M F/U DM HTN Labs HPI Details 61-year-old lady here today for follow-up on her diabetes mellitus, hypertension and dyslipidemia. Has been taking her medicines as directed, but just returned back from a vacation, and admits that she has not been compliant at all with her diet. Latest fasting labs showed normal electrolytes, renal function, but hemoglobin A1c is higher at 7.2% compared to last check. Has been experiencing intermittent episodes of sharp pain in left wrist joint just below the thumb, especially on flexion extension of thumb. Has not been taking any medications for this. [facility] Medical History Tendinitis, de Quervain's Diabetes mellitus with hyperglycemia, without long-term current use of insulin Osteopenia of lumbar spine Allergic contact dermatitis due to dyes Carcinoma of right breast with ductal and lobular features Essential hypertension Dyslipidemia Surgical History History of section History of lumpectomy of right breast Family History Father Cancer of prostate Mother HTN (hypertension) Diabetes mellitus Stroke Sister No problems noted. Daughter No problems noted. Brother No problems noted. Brother No problems noted. Brother No problems noted. Brother No problems noted. Brother No problems noted. Brother No problems noted. Social History Housing: House Alcohol intake: never Patient Tobacco Use Status: Never used Tobacco e-Cigarette/Vaping Use: Never Used Second Hand Smoke Exposure: No service: No Current occupational status: retired Cognitive needs: No Hearing needs: No Vision needs: Yes Questionnaire PHQ-9 Over the last 2 weeks, how often have you been bothered by any of the following problems? Depression Screening Interpretation: Negative Depression Screening Done: Yes Source: Developed by Drs. Jorge Be, Nicole Rodriguez, Deon Malcolm and colleagues, with an educational michael from [employer]. Thrive Questionnaire Date Thrive assessed: 05/17/24 I am a: Patient What is your living situation today?: I have a steady place to live Within the past 12 months, did the food you bought not last and you didn't have the money to get more?: Never true Within the past 12 months, did you worry whether your food would run out before you got money to buy more?: Never true Do you have trouble paying for medicines?: No Do you have trouble getting transportation to medical appointments?: No Do you have trouble paying your heating and electricity bill?: No Do you have trouble taking care of your child, family member or friend?: No Do you have trouble with day-to-day activities such as bathing, preparing meals, shopping, managing finances, etc.?: No Are you currently unemployed and looking for a job?: No Are you interested in more education?: No Please select the resources that you would like help with: None Currently or been in a relationship where the following occur: I choose not to answer THRIVE Score: 0 AUDIT C Alcohol Use Questionnaire (AUDIT-C) 1. How often do you have a drink containing alcohol?: Monthly or less Total Score: 1 SAGE-7 AMB Questionnaire SAGE-7 Date SAGE - 7 assessed: 05/17/24 Feeling nervous, anxious, or on edge: 0 = Not at all Not being able to stop or control worryin = Not at all Worrying too much about different things: 0 = Not at all Trouble relaxin = Not at all Being so restless that it is hard to sit still: 0 = Not at all Becoming easily annoyed or irritable: 0 = Not at all Feeling afraid as if something awful might happen: 0 = Not at all Total SAGE-7 score (0-4 normal; 5-9 mild; 10-14 moderate; 15-21 severe): 0 Source: Developed by Drs. Jorge Be, Nicole Rodriguez, Deon Malcolm and colleagues, with an educational michael from [employer]. Review of Systems Const All systems reviewed & are unremarkable except as noted in HPI and below Denies fatigue, Denies headache(s) and Denies weakness Eyes Details: Goes to [facility] for her diabetes retinopathy screening, goes yearly Denies change in vision, Denies eye discharge and Denies itchy eyes ENT Denies dizziness, Denies headache(s), Denies nasal congestion, Denies nasal discharge and Denies sore throat Card Denies chest pain, Denies lightheadedness, Denies palpitations and Denies dyspnea Resp Denies chest congestion, Denies cough, Denies dyspnea and Denies wheezing GI Denies abdominal pain, Denies change in bowel habits and Denies heartburn Denies urinary frequency, Denies dysuria and Denies urinary urgency Musc Reports as per HPI, Reports arthralgias, Denies joint swelling and Denies muscle weakness Skin/Breast Denies lesions and Denies rash Neuro Denies dizziness, Denies headache(s) and Denies weakness Psych Reports no additional complaints Endo Denies fatigue, Denies polydipsia, Denies polyuria and Denies palpitations Robson/Lymph Denies easy bruising Aller/Immun Denies itchy eyes, Denies seasonal rhinorrhea and Denies wheezing Physical exam (Primary Care) Vital Signs: Last Vital Signs Pulse 77 05/17/24 09:19 Resp 16 05/17/24 09:19 BP 132/70 05/17/24 09:19 Pulse Ox 98 05/17/24 09:19 Oxygen Delivery Method Room Air 05/17/24 09:19 BMI result Body Mass Index 25.7 Tobacco/Smoking Status: Tobacco use Status Tobacco use date assessed 05/17/24 05/17/24 09:21 Patient Tobacco Use Status Never used Tobacco 05/17/24 09:21 e-Cigarette/Vaping Use Never Used 05/17/24 09:21 Depression Screening Interpretation: Negative Thrive Assessment: Date of Thrive Assessment Date Thrive assessed 05/17/24 05/17/24 09:25 Currently or been in a relationship where the following occur: I choose not to answer Const General: cooperative, comfortable and no acute distress Orientation/consciousness: patient oriented x3 HENMT Mouth: Normal oral and palatal mucosa present, oropharynx normal and moist mucous membranes Eyes General: appearance normal, both eyes and all related structures Conjunctivae: conjunctivae normal Pupils: Equal, round and reactive pupils present EOM: EOMs intact bilaterally Neck Neck: Yes full ROM, Yes no lymphadenopathy and Yes supple Chest Chest palpation & inspection: normal inspection of the chest Breast/axilla palpation: normal palpation of the breasts Resp Effort & Inspection: normal respiratory effort and able to speak in complete sentences Auscultation: clear to auscultation bilaterally Cardio Rate: regular rate Rhythm: regular rhythm Heart sounds: S1 normal heart sound present and S2 normal heart sound present GI Inspection: Yes normal to inspection Palpation (GI): Soft to palpation, nontender and no masses Auscultation: normal bowel sounds General: Yes no CVA tenderness and Yes deferred Back/Spine/Pelvis Back: no CVA tenderness and No back tenderness Skin General skin exam: no rashes or lesions noted Neuro General: patient oriented x3, gait normal, tone normal, moves all extremities, Normal light touch and pain sensation, no focal motor deficits and normal sensation to monofilament Cranial nerves: Yes Equal, round and reactive pupils present Cognition (Neuro): normal cognition Gait exam (Neuro): Normal gait present Motor exam (neuro): 5/5 motor strength present throughout Extrem Other: Positive Ysabel's test on left wrist General: Yes full ROM, Yes no joint enlargement, Yes no clubbing, cyanosis or edema, Yes no calf tenderness and Yes normal gait Coding Level of Care Code Est Pt Level 4 (99888) Complex EM visit Add On G2211 Diagnoses Diabetes mellitus with hyperglycemia, without long-term current use of insulin E11.65 Essential hypertension I10 Tendinitis, de Quervain's M65.4 Dyslipidemia E78.5 Assessment & Plan Assessment & Plan (1) Diabetes mellitus with hyperglycemia, without long-term current use of insulin: Code(s): E11.65 - Type 2 diabetes mellitus with hyperglycemia Category: Medical Plan: Reviewed recent fasting lab results with patient. With hemoglobin A1c now at 7.2%. Stressed importance of following recommended diabetic diet and getting regular exercise. Will continue on metformin a 1000 mg 1 tablet once a day, Janumet 1000-500 mg daily, and increased dose of Jardiance to 25 mg daily . reminded to get her yearly diabetes retinopathy screening and diabetes foot exam. Reminded to get yearly flu shots, and COVID booster (2) Essential hypertension: Code(s): I10 - Essential (primary) hypertension Category: Medical Plan: Blood pressure at goal of less than 130/80. Continue with current medication. Reinforced importance of following a low sodium diet, getting regular exercise, and lowering stress levels. (3) Tendinitis, de Quervain's: Code(s): M65.4 - Radial styloid tenosynovitis [de Quervain] Category: Medical Plan: Advised to try massaging Salonpas to affected area 3 times a day as needed, and referred to orthopedics (4) Dyslipidemia: Code(s): E78.5 - Hyperlipidemia, unspecified Category: Medical Plan: Continue rosuvastatin 5 mg daily, in addition to adherence to healthy eating habits and getting regular exercise. Orders: Orders Hemoglobin A1c 08/13/24 E11.65 - Type 2 diabetes mellitus with hyperglycemia, E78.5 - Hyperlipidemia, unspecified, I10 - Essential (primary) hypertension, M85.88 - Other specified disorders of bone density and structure, other site Vitamin D 25-OH Total 08/13/24 E11.65 - Type 2 diabetes mellitus with hyperglycemia, E78.5 - Hyperlipidemia, unspecified, I10 - Essential (primary) hypertension, M85.88 - Other specified disorders of bone density and structure, other site Lipid Panel 08/13/24 E11.65 - Type 2 diabetes mellitus with hyperglycemia, E78.5 - Hyperlipidemia, unspecified, I10 - Essential (primary) hypertension, M85.88 - Other specified disorders of bone density and structure, other site Aspartate Amino Transferase 08/13/24 E11.65 - Type 2 diabetes mellitus with hyperglycemia, E78.5 - Hyperlipidemia, unspecified, I10 - Essential (primary) hypertension, M85.88 - Other specified disorders of bone density and structure, other site Alanine Aminotransferase 08/13/24 E11.65 - Type 2 diabetes mellitus with hyperglycemia, E78.5 - Hyperlipidemia, unspecified, I10 - Essential (primary) hypertension, M85.88 - Other specified disorders of bone density and structure, other site Basic Metabolic Panel Fasting 08/13/24 E11.65 - Type 2 diabetes mellitus with hyperglycemia, E78.5 - Hyperlipidemia, unspecified, I10 - Essential (primary) hypertension, M85.88 - Other specified disorders of bone density and structure, other site Referrals Orthopedics Referral M65.4 - Radial styloid tenosynovitis [de Quervain] Medications: Changed From Jardiance (empagliflozin) 10 mg PO DAILY 90 tabs 1RF NS E11.65 - Type 2 diabetes mellitus with hyperglycemia To Jardiance (empagliflozin) 25 mg PO DAILY 90 tabs 3RF NS E11.65 - Type 2 diabetes mellitus with hyperglycemia From sitagliptin phos-metformin 100-1,000 mg ER (Janumet XR) 1 tab PO QAM 90 tabs 1RF 90 days E11.9 - Type 2 diabetes mellitus without complications To Janumet XR 100-1,000 mg (sitagliptin phos-metformin) 1 tab PO QAM 90 days 90 tabs 4RF NS E11.9 - Type 2 diabetes mellitus without complications Refilled losartan 100 mg PO DAILY 90 tabs 4RF I10 - Essential (primary) hypertension rosuvastatin 5 mg PO DAILY 90 tabs 3RF E11.9 - Type 2 diabetes mellitus without complications, E78.5 - Hyperlipidemia, unspecified
== END 2024-05-17 10:01 | disposition home or self-care (01) ==
LOC: HO.HMCC 09:16
PROVIDERS: PCP Internal Medicine; Visit Provider Internal Medicine
DX: E11.65 Type 2 diabetes mellitus with hyperglycemia (principal); I10 Essential (primary) hypertension; M65.4 Radial styloid tenosynovitis [de Quervain]; E78.5 Hyperlipidemia, unspecified

== ENCOUNTER → 2024-05-17 09:16 | Outpatient (BNVA) | payer MEDICARE, OTHER, SELFPAY | PROVIDERS: PCP Internal Medicine; Visit Provider Internal Medicine | DX: I10 Essential (primary) hypertension (principal); E78.5 Hyperlipidemia, unspecified; E11.65 Type 2 diabetes mellitus with hyperglycemia; M65.4 Radial styloid tenosynovitis [de Quervain]; M85.88 Other specified disorders of bone density and structure, other site | CPT/HCPCS: 96127; 99212 ==

== ENCOUNTER 2024-06-15 12:43 | Outpatient (AMB) | payer MEDICARE, OTHER, SELFPAY ==
--- NOTE | 2024-06-15 13:19 | A.OFFVIS_ITS ---
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 States her pain is below her CMC joint. Pain is triggered with flexion of hand, twisting, when extending her thumb and when cooking (using a knife). States she has been using a brace along with warm compress which alleviates pain temporary. Also has hx of Bilateral hand CTS and O.A. EMG done many years ago as per patient. Last A1C done on 05/16/24 - 7.4- patient had just returned from the [facility]. Allergies acetaminophen [Percocet] Allergy (Unknown, Verified 06/15/24 13:31) anaphylaxis oxycodone [Percocet] Allergy (Unknown, Verified 06/15/24 13:31) anaphylaxis HPI HPI LOBSTER CATCHER- LT Radial styloid tenosynovitis de Quervain: Details: Annmarie is a 69 year old right hand dominant woman who presents for left wrist pain. She complains of left radial sided wrist pain, worse with pinching, gripping, or thumb flexion. She says holding a knife in the kitchen is particularly painful. She denies any prior treatment options, and has been wearing a brace. She reports a Hx of bilateral carpal tunnel syndrome & hand OA. Her NCS was done several years ago at [facility]. She says she has intermittent numbness and tingling in the median nerve distribution bilaterally. This does not occur every day & is tolerable. She denies any prior treatment She is a Diabetic, her most recent HgA1c was 7.2% on 03/24/24. She is a retired nurse. [facility] Medical History Tendinitis, de Quervain's Diabetes mellitus with hyperglycemia, without long-term current use of insulin Osteopenia of lumbar spine Allergic contact dermatitis due to dyes Carcinoma of right breast with ductal and lobular features Essential hypertension Dyslipidemia Surgical History History of section History of lumpectomy of right breast Family History Father Cancer of prostate Mother HTN (hypertension) Diabetes mellitus Stroke Sister No problems noted. Daughter No problems noted. Brother No problems noted. Brother No problems noted. Brother No problems noted. Brother No problems noted. Brother No problems noted. Brother No problems noted. Social History Housing: House Alcohol intake: never Patient Tobacco Use Status: Never used Tobacco e-Cigarette/Vaping Use: Never Used Second Hand Smoke Exposure: No service: No Current occupational status: retired Cognitive needs: No Hearing needs: No Vision needs: Yes Review of Systems Const All systems reviewed & are unremarkable except as noted in HPI and below Physical Exam Vital Signs: BMI result Body Mass Index 25.7 Const General: cooperative, healthy appearing and no acute distress Orientation/consciousness: patient oriented x3 HEENT Head: Yes normocephalic and Yes atraumatic Eyes EOM: EOMs intact bilaterally Resp Effort & Inspection: normal respiratory effort and able to speak in complete sentences Cardio Jugular venous distension: no JVD Skin General skin exam: turgor normal Rashes: no rashes Neuro General: patient oriented x3 Extrem Other: Evaluation of Left Upper Extremity: The patient is alert, oriented, and in no acute distress Neuro: Median, Ulnar, Radial nerves motor and sensory intact and sensation is normal to the tips of all digits Vascular: Cap refill brisk ROM: She can make a fist and extend all her digits No locking or catching Skin: No lacerations or abrasions. General: No Ecchymosis. No Erythema or evidence of infection. TTP 1st dorsal compartment Pos Ysabel test on the left Neg Ysabel test on the right No tenderness over the MCP joint, basal joint, or a1 cem Psych Appearance: grossly normal Affect: normal affect Attitude: cooperative Office Procedures AMB Fracture Care Details: No fracture, injection Fracture Billing Code: Fracture Billing Code Assessment & Plan Assessment & Plan (1) Tendinitis, de Quervain's: Comment: L Code(s): M65.4 - Radial styloid tenosynovitis [de Quervain] Category: Medical (2) Diabetes mellitus with hyperglycemia, without long-term current use of insulin: Code(s): E11.65 - Type 2 diabetes mellitus with hyperglycemia Category: Medical (3) Bilateral carpal tunnel syndrome: Code(s): G56.03 - Carpal tunnel syndrome, bilateral upper limbs Category: Medical Plan Assessment & Plan: 1. Left De Quervains tenosynovitis Positive Ysabel test I educated her about this condition I discussed operative and non-operative treatment options The patient would like to proceed with an injection I discussed activity modification, they should limit or avoid any heavy or repetitive pinching or gripping activities She was fitted for a comfort cool brace to wear with daily activity She should work on ROM exercises, and avoid any gripping or strengthening activities Injection #1: The risks and benefits of a steroid injection including but not limited to risk of damage to blood vessels, nerves, tendons, infection, skin bleaching, failure to improve symptoms, increased pain, and possible need for further injections or other intervention were discussed with the patient and the patient wishes to proceed with the steroid injection. Once consent was obtained, I sterilely prepped the area over the 1st dorsal compartment of the Left thumb. I then injected the 1st dorsal compartment with a combination of 1 mL of dexamethasone (4mg/ml), and 1% lidocaine. The patient tolerated the procedure well with no complications and good resolution of their symptoms prior to leaving clinic. If the patient continues to have pain 6-8 weeks following this injection, they may call to schedule appointment to discuss alternative treatment options She will follow up prn 2. Bilateral hand numbness In the median nerve distribution Symptoms intermittent & occasional, worse with activity Patient reports NCS done several years ago at [facility], no copy provided today I educated her about this condition, and the risks of delaying treatment I discussed operative treatment options If her symptoms increase in frequency or severity she can follow up to discuss surgery Otherwise she can follow up prn Scribed for Anne Orona MD by James Laura, medical collector, on 06/15/24 at 2:05 PM, EST. Coding Level of Care Code New Pt Level 4 (69953) Diagnoses Tendinitis, de Quervain's M65.4 Diabetes mellitus with hyperglycemia, without long-term current use of insulin E11.65 Bilateral carpal tunnel syndrome G56.03 CPT Codes Fracture Care - Fracture Billing Code: Fracture Billing Code ([id number])
[2024-06-15 13:20] VITALS: BMI 25.7
--- OUTSIDE RECORDS SUMMARY | 2024-06-15 13:46 | XMS_ITS | Patient Health Record ---
Author Organization [facility] Address [address] [place] [address] Care Team Providers Care Community Services Coordinator Name Role Phone JOSIE PAK MD Primary Care Provider Nayana Barraza Unavailable [phone] Allergies Allergen (clinical drug ingredient) Drug/Non Drug Allergy documented on EMR Reaction Allergy Type Onset Date Status acetaminophen / oxycodone PERCOSET (uncoded) DIFFICULTY BREATHING Allergy Active Reason For Referral No Information Medications Medication SIG (Take, Route, Fr equency, Duration) Notes Start Date End Date Status Aspirin EC 81MG 1 ORAL daily for -3 [facility] 12/30/2010 Active losartan 100MG 1 ORAL daily for -3 [facility] 06/06/2013 Active metFORMIN HCl 500MG 1 ORAL twice daily for -3 [facility] 05/11 Active Simvastatin 40MG 1 ORAL daily for -3 [facility] 12/30/2010 Active Vitamin D3 1000 IU 1 ORAL daily for -3 [facility] 12/30/2010 Active Calcium 1 tab Oral Active Januvia Active Problems Problem Type SNOMED Code ICD Code Onset Dates Problem Status W/U Status Risk Notes Problem Urinary incontinence (612242104) Unspecified urinary incontinence (R32) Active confirmed Problem SI - Stress incontinence (46914248) Stress incontinence (female) (male) (N39.3) Active confirmed Problem Malignant neoplasm of female breast (307187700) Malignant neoplasm of other specified sites of female breast (174.8) Active confirmed Diag Problem Type II diabetes mellitus without complication (422649445) Diabetes mellitus without mention of complication, type II or unspecified type, not stated as uncontrolled (250.00) Active confirmed Major Problem Hyperlipidemia (39561348) Other and unspecified hyperlipidemia (272.4) Active confirmed Major Problem Essential hypertension (36263478) Unspecified essential hypertension (401.9) Active confirmed Major Problem Menopausal symptom (64689866) Symptomatic menopausal or female climacteric states (627.2) Active confirmed Major Problem Postmenopausal atrophic vaginitis (36530313) Postmenopausal atrophic vaginitis (627.3) Active confirmed Diag Problem Gynecological examination normal (599681779378577) Routine gynecological examination (V72.31) Active confirmed Problem Screening for malignant neoplasm of colon (784774690) Special screening for malignant neoplasms, colon (V76.51) Active confirmed Major Plan Of Treatment Pending Test Test Name Order Date MAMMOGRAM, SCREENING 06/06/2014 Urinalysis 08/27/2017 COMPLETE URINALYSIS 08/27/2017 Insurance Providers Payer Name Payer Address Payer Phone Subscriber Number Group Number Insured Name Patient Relationship to Insured Coverage Start Date Coverage End Date [facility] [address] [place] [id number] ELIZONDO Self - patient is [...]
== END 2024-06-15 14:21 | disposition home or self-care (01) ==
LOC: HO.HOS 12:44
PROVIDERS: PCP Internal Medicine; Visit Provider Orthopaedic Surgery
DX: M65.4 Radial styloid tenosynovitis [de Quervain] (principal); E11.65 Type 2 diabetes mellitus with hyperglycemia; G56.03 Carpal tunnel syndrome, bilateral upper limbs
CPT/HCPCS: 20550; 99204

== ENCOUNTER → 2024-06-15 12:43 | Outpatient (BNVA) | payer MEDICARE, OTHER, SELFPAY | PROVIDERS: PCP Internal Medicine; Visit Provider Orthopaedic Surgery | DX: M65.4 Radial styloid tenosynovitis [de Quervain] (principal); E11.65 Type 2 diabetes mellitus with hyperglycemia; G56.03 Carpal tunnel syndrome, bilateral upper limbs | CPT/HCPCS: 20550; 99202; J1100; J2003 ==

== ENCOUNTER 2024-08-16 08:05 | Outpatient (REF) | payer MEDICARE, OTHER, SELFPAY ==
[2024-08-16 11:44] LABS: Alanine Aminotransferase 18 U/L (0-31); Anion Gap 13 (12-20); Aspartate Amino Transferase 25 U/L (5-31); Blood Urea Nitrogen 22 mg/dL (9-16); Calcium 9.0 mg/dL (8.4-10.2); Carbon Dioxide 23 mmol/L (22-29); Chloride 108 mmol/L (96-108); Cholesterol 178 mg/dL (<200); Estimated Glomerular Filt Rate > 60; HDL Cholesterol 63 mg/dL (>40); Hemoglobin A1C 202.9685 umol/L; Potassium 3.9 mmol/L (3.3-5.1); Sodium 140 mmol/L (135-145); Total Hemoglobin (HGBA1C) 3487.2495 umol/L; Triglycerides 122 mg/dL (<150)
== END 2024-08-16 08:06 | disposition home or self-care (01) ==
LOC: HO.HMGCLDS 08:05
PROVIDERS: PCP Internal Medicine; Visit Provider Internal Medicine
DX: E11.65 Type 2 diabetes mellitus with hyperglycemia (principal); M85.88 Other specified disorders of bone density and structure, other site; I10 Essential (primary) hypertension; E78.5 Hyperlipidemia, unspecified
CPT/HCPCS: 36415; 80048; 80061; 82306; 83036; 84450; 84460

== ENCOUNTER 2024-08-18 11:10 | Outpatient (AMB) | payer MEDICARE, OTHER, SELFPAY ==
--- NOTE | 2024-08-18 11:45 | A.OFFPC_ITS ---
Vital Signs 08/18/24 11:47 Height 5 ft 1 in Weight 139 lb BMI 26.3 BP 124/70 Blood Pressure Location Rt brachial Position Sitting Respiration 16 Pulse 74 Pulse Source Pulse Oximeter Temp 98.1 F Temp Source Oral Pulse Oximetry (%) 98 Oxygen Delivery Method Room Air Intake Visit Reasons: PE Intake Note: Pt is here today for her PE: last mammogram, colonoscopy 08/06/17 Allergies acetaminophen (Percocet) Allergy (Unknown, Verified 08/18/24 12:36) anaphylaxis oxycodone (Percocet) Allergy (Unknown, Verified 08/18/24 12:36) anaphylaxis Medication List - Last Reconciled 08/18/24 by Karen Thompson MD ascorbic acid (vitamin C) 1 g PO ONCE blood sugar diagnostic (FreeStyle Lite Strips) Check fasting blood sugar twice a day blood sugar diagnostic (FreeStyle Lite Strips) check fasting glucose once a day calcium citrate 200 mg PO DAILY Januvia (sitagliptin phosphate) 100 mg PO DAILY NS Jardiance (empagliflozin) 25 mg PO DAILY NS lancets (FreeStyle Lancets) check fasting glucose once a day losartan 100 mg PO DAILY magnesium 250 mg PO DAILY metformin 1,000 mg PO BIDWMEAL 3 months metoprolol succinate ER 25 mg PO DAILY rosuvastatin 5 mg PO DAILY zinc gluconate 50 mg PO DAILY Tobacco use date assessed: 08/18/24 Fall risk assessment: No Falls in past year Last assessed Fall Risk: 08/18/24 Dental Screening Dental Screen Date: 08/18/24 Did you have a dental visit in the last 12 months?: Yes Did you have a dental problem in the last 6 months where you did not have access to dental care?: No Was dental information given to patient?: Patient has dentist HPI PE HPI Details 69-year-old lady here today for physical exam. Hypertension stable controlled on losartan and metoprolol, has dyslipidemia currently stable controlled on rosuvastatin 5 mg taken once a day. She has diabetes mellitus which is still poorly controlled, with latest hemoglobin A1c at 7.5%. Patient currently on Janumet and metformin. She is overdue for her diabetes eye scree bar[place], has not been compliant with following her diet and does not get any regular exercise except for occasional yd work. She is up-to-date with her screening mammogram but has not yet had her bone de nsity scan done, even though order was sent to [facility] earlier this year. Up-to-date with her screening colonoscopy, due again in 2027. She is up-to-date with all her vaccines [facility] Medical History Tendinitis, de Quervain's Diabetes mellitus with hyperglycemia, without long-term current use of insulin Osteopenia of lumbar spine Allergic contact dermatitis due to dyes Carcinoma of right breast with ductal and lobular features Essential hypertension Dyslipidemia Surgical History History of section History of lumpectomy of right breast Family History Father Cancer of prostate Mother HTN (hypertension) Diabetes mellitus Stroke Sister No problems noted. Daughter No problems noted. Brother No problems noted. Brother No problems noted. Brother No problems noted. Brother No problems noted. Brother No problems noted. Brother No problems noted. Social History Housing: House Alcohol intake: never Patient Tobacco Use Status: Never used Tobacco e-Cigarette/Vaping Use: Never Used Second Hand Smoke Exposure: No service: No Current occupational status: retired Cognitive needs: No Hearing needs: No Vision needs: Yes Questionnaire PHQ-9 Over the last 2 weeks, how often have you been bothered by any of the following problems? Depression Screening Interpretation: Negative Depression Screening Done: Yes Source: Developed by Drs. Jorge Be, Nicole Rodriguez, Deon Malcolm and colleagues, with an educational mcihael from [employer]. Thrive Questionnaire Date Thrive assessed: 05/14/24 I am a: Patient What is your living situation today?: I have a steady place to live Within the past 12 months, did the food you bought not last and you didn't have the money to get more?: Never true Within the past 12 months, did you worry whether your food would run out before you got money to buy more?: Never true Do you have trouble paying for medicines?: No Do you have trouble getting transportation to medical appointments?: No Do you have trouble paying your heating and electricity bill?: No Do you have trouble taking care of your child, family member or friend?: No Do you have trouble with day-to-day activities such as bathing, preparing meals, shopping, managing finances, etc.?: No Are you currently unemployed and looking for a job?: No Are you interested in more education?: No Please select the resources that you would like help with: None Currently or been in a relationship where the following occur: No concerns repo rted THRIVE Score: 0 SAGE-7 AMB Questionnaire SAGE-7 Date SAGE - 7 assessed: 05/17/24 Source: Developed by Drs. Jorge Be, Nicole Rodriguez, Deon Malcolm and colleagues, with an educational michael from [employer]. Review of Systems Const All systems reviewed & are unremarkable except as noted in HPI and below Denies fatigue, Denies headache(s) and Denies weakness Eyes Details: Goes to [facility] for her diabetes retinopathy screening, goes yearly Denies change in vision, Denies eye discharge and Denies itchy eyes ENT Denies dizziness, Denies headache(s), Denies nasal congestion, Denies nasal discharge and Denies sore throat Card Denies chest pain, Denies lightheadedness, Denies palpitations and Denies dyspnea Resp Denies chest congestion, Denies cough, Denies dyspnea and Denies wheezing GI Denies abdominal pain, Denies change in bowel habits and Denies heartburn Denies urinary frequency, Denies dysuria and Denies urinary urgency Musc Reports arthralgias (Mainly in wrists), Denies joint swelling and Denies muscle weakness Skin/Breast Denies lesions and Denies rash Neuro Denies dizziness, Denies headache(s) and Denies weakness Psych Reports no additional complaints Endo Denies fatigue, Denies polydipsia, Denies polyuria and Denies palpitations Robson/Lymph Denies easy bleeding and Denies easy bruising Aller/Immun Denies itchy eyes, Denies seasonal rhinorrhea and Denies wheezing Physical exam (Primary Care) Vital Signs: Last Vital Signs Temp 98.1 F 08/18/24 11:47 Pulse 74 08/18/24 11:47 Resp 16 08/18/24 11:47 BP 124/70 08/18/24 11:47 Pulse Ox 98 08/18/24 11:47 Oxygen Delivery Method Room Air 08/18/24 11:47 BMI result Body Mass Index 26.3 Tobacco/Smoking Status: Tobacco use Status Tobacco use date assessed 08/18/24 08/18/24 11:48 Patient Tobacco Use Status Never used Tobacco 08/18/24 11:45 e-Cigarette/Vaping Use Never Used 08/18/24 11:45 Depression Screening Interpretation: Negative Thrive Assessment: Date of Thrive Assessment Date Thrive assessed 05/14/24 08/18/24 11:45 Currently or been in a relationship where the following occur: No concerns reported Const General: cooperative, comfortable and no acute distress Orientation/consciousness: patient oriented x3 HENMT Mouth: Normal oral and palatal mucosa present, oropharynx normal and moist mucous membranes Eyes General: appearance normal, both eyes and all related structures Conjunctivae: conjunctivae normal Pupils: Equal, round and reactive pupils present EOM: EOMs intact bilaterally Neck Neck: Yes full ROM, Yes no lymphadenopathy and Yes supple Chest Chest palpation & inspection: normal inspection of the chest Breast/axilla palpation: normal palpation of the breasts Resp Effort & Inspection: normal respiratory effort and able to speak in complete sentences Auscultation: clear to auscultation bilaterally Cardio Rate: regular rate Rhythm: regular rhythm Heart sounds: S1 normal heart sound present and S2 normal heart sound present GI Inspection: Yes normal to inspection Palpation (GI): Soft to palpation, nontender and no masses Auscultation: normal bowel sounds General: Yes no CVA tenderness and Yes deferred Back/Spine/Pelvis Back: no CVA tenderness and No back tenderness Skin General skin exam: no rashes or lesions noted Neuro General: patient oriented x3, gait normal, tone normal, moves all extremities, Normal light touch and pain sensation, no focal motor deficits and normal sensation to monofilament Cranial nerves: Yes Equal, round and reactive pupils present Cognition (Neuro): normal cognition Gait exam (Neuro): Normal gait present Motor exam (neuro): 5/5 motor strength present throughout Extrem Other: Positive Ysabel's test on left wrist General: Yes full ROM, Yes no joint enlargement, Yes no clubbing, cyanosis or edema, Yes no calf tenderness and Yes normal gait Psych Appearance: well kempt Mental Status: mental status grossly normal Speech and movement: Normal speech and movement present Affect: normal affect Results Reviewed Results Reviewed: Name: Annmarie Jefferson Age/Sex: 69/F : 1955 Unit#: [id number] Attend Dr: Karen Thompson MD Re08/16/24 Status: DEP REF Location: [facility] Disch: SPEC : [id number] NEIDA: 08/16/24 STATUS: COMP REQ : [id number] RECD: 08/16/[address]: Karen Thompson MD COMP: 08/16/24 ENTERED: 08/16/[address]: ORDERED: Met Prof Fast, AST, ALT, Lipid Panel, Vitamin D 25-OH Test Result Flag Reference Sodium 140 135-145 mmol/L Potassium 3.9 3.3-5.1 mmol/L CL 108 96-108 mmol/L CO2 23 22-29 mmol/L Gap 13 12-20 BUN 22 H 9-16 mg/dL Creat 0.76 0.5-1.4 mg/dL eGFR > 60 Chronic Kidney Disease: Estimated GFR < 60 mL/min/1.73m2 Severe Kidney Disease: Estimated GFR < 15 mL/min/1.73m2 FBS 149 H 60-99 mg/dL A fasting glucose of 126 mg/dl or greater on more than one occasion is considered diagnostic of diabetes. CA 9.0 8.4-10.2 mg/dL AST (GOT) 25 5-31 U/L ALT (GPT) 18 0-31 U/L Triglyceride 122 <150 mg/dL Desirable Triglyceride: less than 150 mg/dL Borderline High Triglyceride 150-199 mg/dL High Triglyceride: 200-499 mg/dL Very High Triglyceride: greater than or equal to 5OO mg/dL Cholesterol 178 <200 mg/dL Desirable Cholesterol: less than 200 mg/dL Borderline High Cholesterol: 200-239 mg/dL High Cholesterol: greater than 239 mg/dL LDL Calculated 91 <100 mg/dL Desirable LDL: less than 100 mg/dL Near Optimal/Above Optimal LDL: 110-129 mg/dL Borderline High LDL: 130-159 mg/dL High LDL: 160-189 mg/dL Very High LDL: greater than or equal to 190 mg/dL HDL 63 >40 mg/dL Desirable HDL: greater than 40 mg/dL Note: This HDL assay may give artificially low results in patients with liver disease. Vitamin D 25-OH 64.9 >30 ng/mL Health Based Reference Values* < 20 ng/mL Deficient 20-30 ng/mL Insufficient > 30 ng/mL Sufficient Laboratory Tests 08/16/24 08:08 Hemoglobin A1c % 7.5 H Coding Level of Care Code Est Pt Prev Care >65y(94728) Diagnoses Annual visit for general adult medical examination with abnormal findings Z00.01 Diabetes mellitus with hyperglycemia, without long-term current use of insulin E11.65 Dyslipidemia E78.5 Essential hypertension I10 Osteopenia of lumbar spine M85.88 Tendinitis, de Quervain's M65.4 Assessment & Plan Assessment & Plan (1) Annual visit for general adult medical examination with abnormal findings: Code(s): Z00. - Encounter for general adult medical examination with abnormal findings Plan: Reviewed recent fasting lab results with patient.. Continue dental visit every 6 months and regular eye exams, patient would like to see an diabetes solutions specialist now, referred to Brandi in [facility], patient to schedule appointment. Take adequate calcium in diet and vitamin-D 3 at 2000 IU per cap once a day, in addition to weight-bearing exercises to help maintain good muscle tone and weight control. Will follow-up on order or bone density schedule earlier this year to be done at [facility]. Instructed to do self-breast exam, and continued get yearly mammogram, currently up-to-date.. Up-to-date with all her vaccines. Get yearly flu shots. Colonoscopy screening due again in 2020 (2) Diabetes mellitus with hyperglycemia, without long-term current use of insulin: Code(s): E11.65 - Type 2 diabetes mellitus with hyperglycemia Category: Medical Plan: Patient refusing to start any injectable medication, has been advised to start GLP 1 agonist in addition to her metformin. Admits to not being compliant with diet, would like to try behavioral modifications again before considering changing her medication. Janumet XR stopped, switched to Januvia 100 mg daily. Continue with metformin 1000 mg twice a day. Patient to schedule an appointment with Brandi [facility] for her diabetes retinopathy screening.. Schedule office visit for follow-up in 3 months (3) Dyslipidemia: Code(s): E78.5 - Hyperlipidemia, unspecified Category: Medical Plan: Fasting lipids are within normal limits, continue with rosuvastatin 5 mg daily (4) Essential hypertension: Code(s): I10 - Essential (primary) hypertension Category: Medical Plan: Blood pressure at goal of less than 130/80. Continue with losartan 100 mg daily and metoprolol succinate ER 25 mg daily Reinforced importance of following a low sodium diet, getting regular exercise, and lowering stress levels. (5) Osteopenia of lumbar spine: Code(s): M85.88 - Other specified disorders of bone density and structure, other site Category: Medical Plan: Repeat bone density scan ordered this year, will follow-up on order given earlier this year. (6) Tendinitis, de Quervain's: Comment: L Code(s): M65.4 - Radial styloid tenosynovitis [de Quervain] Category: Medical Plan: Followed by Orthopedic Orders: Orders Hemoglobin A1c 3 Months E11.65 - Type 2 diabetes mellitus with hyperglycemia, E78.5 - Hyperlipidemia, unspecified, I10 - Essential (primary) hypertension, M85.88 - Other specified disorders of bone density and structure, other site, Z00.01 - Encounter for general adult medical examination with abnormal findings Basic Metabolic Panel Fasting 3 Months E11.65 - Type 2 diabetes mellitus with hyperglycemia, E78.5 - Hyperlipidemia, unspecified, I10 - Essential (primary) hypertension, M85.88 - Other specified disorders of bone density and structure, other site, Z00.01 - Encounter for general adult medical examination with abnormal findings Vitamin D 25-OH Total 3 Months E11.65 - Type 2 diabetes mellitus with hyperglycemia, E78.5 - Hyperlipidemia, unspecified, I10 - Essential (primary) hypertension, M85.88 - Other specified disorders of bone density and structure, other site, Z00.01 - Encounter for general adult medical examination with abnormal findings Medications: New Januvia (sitagliptin phosphate) 100 mg PO DAILY 90 tabs 2RF NS Discontinued Janumet XR 100-1,000 mg (sitagliptin phos-metformin) Discontinued Reason: Doctor's Order 1 tab PO QAM 90 days 90 tabs 4RF NS E11.9 - Type 2 diabetes mellitus without complications
[2024-08-18 11:47] VITALS: BP 124/70; PULSE 74; RESP 16; TEMP 36.7; O2SAT 98; BMI 26.3
--- OUTSIDE RECORDS SUMMARY | 2024-08-18 11:56 | XMS_ITS | Patient Health Record ---
Author Organization [email or web address] Address [address] [place] [address] Care Team Providers Care Route Salesperson Name Role Phone JOSIE PAK MD Primary Care Provider Nayana Barraza Unavailable [phone] Allergies Allergen (clinical drug ingredient) Drug/Non Drug Allergy documented on EMR Reaction Allergy Type Onset Date Status acetaminophen / oxycodone PERCOSET (uncoded) DIFFICULTY BREATHING Allergy Active Reason For Referral No Information Medications Medication SIG (Take, Route, Fr equency, Duration) Notes Start Date End Date Status Aspirin EC 81MG 1 ORAL daily; Duration: -3 [facility] [place] [place]- 011 Active losartan 100MG 1 ORAL daily; Duration: -3 Jason- 06/07/19 14 Active metFORMIN HCl 500MG 1 ORAL twice daily; Duration: -3 Jason- 06/03/2012 Active Simvastatin 40MG 1 ORAL daily; Duration: -3 [facility] [place] [place]- 2010 Active Vitamin D3 1000 IU 1 ORAL daily; Duration: -3 [facility] [place] [place]- 12/11 Active Calcium 1 tab Oral Active Januvia Active Problems Problem Type SNOMED Code ICD Code Onset Dates Problem Status W/U Status Risk Notes Problem Urinary incontinence (910611583) Unspecified urinary incontinence (R32) Active confirmed Problem SI - Stress incontinence (50571083) Stress incontinence (female) (male) (N39.3) Active confirmed Problem Malignant neoplasm of female breast (633491585) Malignant neoplasm of other specified sites of female breast (174.8) Active confirmed Diag Problem Type II diabetes mellitus without complication (559960575) Diabetes mellitus without mention of complication, type II or unspecified type, not stated as uncontrolled (250.00) Active confirmed Major Problem Hyperlipidemia (16394500) Other and unspecified hyperlipidemia (272.4) Active confirmed Major Problem Essential hypertension (71973132) Unspecified essential hypertension (401.9) Active confirmed Major Problem Menopausal symptom (48050416) Symptomatic menopausal or female climacteric states (627.2) Active confirmed Major Problem Postmenopausal atrophic vaginitis (61505482) Postmenopausal atrophic vaginitis (627.3) Active confirmed Diag Problem Gynecological examination normal (056104872806754) Routine gynecological examination (V72.31) Active confirmed Problem Screening for malignant neoplasm of colon (391689106) Special screening for malignant neoplasms, colon (V76.51) Active confirmed Major Plan Of Treatment Pending Test Test Name Order Date MAMMOGRAM, SCREENING 06/06/2014 Urinalysis 08/27/2017 COMPLETE URINALYSIS 08/27/2017 Insurance Providers Payer Name Payer Address Payer Phone Subscriber Number Group Number Insured Name Patient Relationship to Insured Coverage Start Date Coverage End Date [facility] [address] [place] [address] [id number] NAOMI ELIZONDO Self - patient is [...]
== END 2024-08-18 13:47 | disposition home or self-care (01) ==
LOC: HO.HMCC 11:11
PROVIDERS: PCP Internal Medicine; Visit Provider Internal Medicine
DX: Z00.01 Encounter for general adult medical examination with abnormal findings (principal); E11.65 Type 2 diabetes mellitus with hyperglycemia; E78.5 Hyperlipidemia, unspecified; I10 Essential (primary) hypertension; M85.88 Other specified disorders of bone density and structure, other site; M65.4 Radial styloid tenosynovitis [de Quervain]

== ENCOUNTER → 2024-08-18 11:10 | Outpatient (BNVA) | payer MEDICARE, OTHER, SELFPAY | PROVIDERS: PCP Internal Medicine; Visit Provider Internal Medicine | DX: Z00.01 Encounter for general adult medical examination with abnormal findings (principal); E11.65 Type 2 diabetes mellitus with hyperglycemia; E78.5 Hyperlipidemia, unspecified; I10 Essential (primary) hypertension; M85.88 Other specified disorders of bone density and structure, other site; M65.4 Radial styloid tenosynovitis [de Quervain] | CPT/HCPCS: 99397 ==

== ENCOUNTER 2024-11-22 07:49 | Outpatient (REF) | payer MEDICARE, OTHER, SELFPAY ==
--- OUTSIDE RECORDS SUMMARY | 2024-11-22 07:52 | XMS_ITS | Patient Health Record ---
Author Organization [facility] Address [address] [place] [address] Care Team Providers Care Deputy Jailer Name Role Phone JOSIE PAK MD Primary Care Provider Nayana Barraza Unavailable [phone] Allergies Allergen (clinical drug ingredient) Drug/Non Drug Allergy documented on EMR Reaction Allergy Type Onset Date Status acetaminophen / oxycodone PERCOSET (uncoded) DIFFICULTY BREATHING Allergy Active Reason For Referral No Information Medications Medication SIG (Take, Route, Fr equency, Duration) Notes Start Date End Date Status Aspirin EC 81MG 1 ORAL daily; [place]: [place] [facility] [place] Active losartan 100MG 1 ORAL daily; Duration: -3 Jason- 06/07/19 14 Active metFORMIN HCl 500MG 1 ORAL twice daily; Duration: -3 Jason- 06/03/2012 Active Simvastatin 40MG 1 ORAL daily; [place]: [place] [facility] [place] Active Vitamin D3 1000 IU 1 ORAL daily; Duration: -3 [facility] [place]11 Active Calcium 1 tab Oral Active Januvia Active Problems Problem Type SNOMED Code ICD Code Onset Dates Problem Status W/U Status Risk Notes Problem Urinary incontinence (352402000) Unspecified urinary incontinence (R32) Active confirmed Problem SI - Stress incontinence (90712944) Stress incontinence (female) (male) (N39.3) Active confirmed Problem Malignant neoplasm of female breast (097961286) Malignant neoplasm of other specified sites of female breast (174.8) Active confirmed Diag Problem Type II diabetes mellitus without complication (116202900) Diabetes mellitus without mention of complication, type II or unspecified type, not stated as uncontrolled (250.00) Active confirmed Major Problem Hyperlipidemia (12602785) Other and unspecified hyperlipidemia (272.4) Active confirmed Major Problem Essential hypertension (27134276) Unspecified essential hypertension (401.9) Active confirmed Major Problem Menopausal symptom (37573837) Symptomatic menopausal or female climacteric states (627.2) Active confirmed Major Problem Postmenopausal atrophic vaginitis (57997347) Postmenopausal atrophic vaginitis (627.3) Active confirmed Diag Problem Gynecological examination normal (322586461420894) Routine gynecological examination (V72.31) Active confirmed Problem Screening for malignant neoplasm of colon (460212092) Special screening for malignant neoplasms, colon (V76.51) Active confirmed Major Plan Of Treatment Pending Test Test Name Order Date MAMMOGRAM, SCREENING 06/06/2014 Urinalysis 08/27/2017 COMPLETE URINALYSIS 08/27/2017 Insurance Providers Payer Name Payer Address Payer Phone Subscriber Number Group Number Insured Name Patient Relationship to Insured Coverage Start Date Coverage End Date [facility] [address] [place] [address] [phone] [id number] NAOMI ELIZONDO Self - patient is [...]
[2024-11-22 10:44] LABS: Anion Gap 12 (12-20); Blood Urea Nitrogen 17 mg/dL (9-16); Calcium 9.3 mg/dL (8.4-10.2); Carbon Dioxide 27 mmol/L (22-29); Chloride 105 mmol/L (96-108); Estimated Glomerular Filt Rate > 60; Potassium 4.4 mmol/L (3.3-5.1); Sodium 140 mmol/L (135-145)
== END 2024-11-22 07:50 | disposition home or self-care (01) ==
LOC: HO.HMGCLDS 07:49
PROVIDERS: PCP Internal Medicine; Visit Provider Internal Medicine
DX: Z00.01 Encounter for general adult medical examination with abnormal findings (principal); E11.65 Type 2 diabetes mellitus with hyperglycemia; I10 Essential (primary) hypertension; M85.88 Other specified disorders of bone density and structure, other site; E78.5 Hyperlipidemia, unspecified
CPT/HCPCS: 36415; 80048; 82306; 83036

== ENCOUNTER 2024-11-23 11:36 | Outpatient (AMB) | payer MEDICARE, OTHER, SELFPAY ==
--- NOTE | 2024-11-23 11:38 | A.OFFPC_ITS ---
Vital Signs 11/23/24 11:56 Height 5 ft 1 in Weight 139 lb BMI 26.3 BP 112/64 Blood Pressure Location Lt brachial Position Sitting Respiration 16 Pulse 87 Pulse Source Pulse Oximeter Temp 98.1 F Temp Source Oral Pulse Oximetry (%) 97 Oxygen Delivery Method Room Air Intake Visit Reasons: 3m follow up Intake Note: Pt is here today for her 3mo. Allergies acetaminophen (Percocet) Allergy (Unknown, Verified 11/23/24 11:59) anaphylaxis oxycodone (Percocet) Allergy (Unknown, Verified 11/23/24 11:59) anaphylaxis Medication List - Last Reconciled 11/23/24 by Karen Thompson MD ascorbic acid (vitamin C) 1 g PO ONCE blood sugar diagnostic (FreeStyle Lite Strips) Check fasting blood sugar twice a day blood sugar diagnostic (FreeStyle Lite Strips) check fasting glucose once a day calcium citrate 200 mg PO DAILY Januvia (sitagliptin phosphate) 100 mg PO DAILY NS Jardiance (empagliflozin) 25 mg PO DAILY NS lancets (FreeStyle Lancets) check fasting glucose once a day losartan 100 mg PO DAILY magnesium 250 mg PO DAILY metformin 1,000 mg PO BIDWMEAL 3 months metoprolol succinate ER 25 mg PO DAILY rosuvastatin 5 mg PO DAILY zinc gluconate 50 mg PO DAILY Tobacco use date assessed: 11/23/24 Fall risk assessment: No Falls in past year Last assessed Fall Risk: 11/23/24 Dental Screening Dental Screen Date: 11/23/24 Did you have a dental visit in the last 12 months?: Yes Did you have a dental problem in the last 6 months where you did not have access to dental care?: No Was dental information given to patient?: Patient has dentist HPI 3m follow up HPI Details 69-year-old lady with diabetes mellitus, currently on metformin 1000 mg twice a day with meals, Jardiance 25 mg daily and Januvia 100 mg daily, here today for follow-up. Latest fasting labs showed hemoglobin A1c is still not at goal at 7.6%, no microalbuminuria seen. Admits to not being compliant with diet and no regular exercise done. Has dyslipidemia and hypertension currently stable and controlled on present treatment [facility] Medical History Tendinitis, de Quervain's Diabetes mellitus with hyperglycemia, without long-term current use of insulin Osteopenia of lumbar spine Allergic contact dermatitis due to dyes Carcinoma of right breast with ductal and lobular features Essential hypertension Dyslipidemia Surgical History History of section History of lumpectomy of right breast Family History Father Cancer of prostate Mother HTN (hypertension) Diabetes mellitus Stroke Sister No problems noted. Daughter No problems noted. Brother No problems noted. Brother No problems noted. Brother No problems noted. Brother No problems noted. Brother No problems noted. Brother No problems noted. Social History Housing: House Alcohol intake: never Patient Tobacco Use Status: Never used Tobacco e-Cigarette/Vaping Use: Never Used Second Hand Smoke Exposure: No service: No Current occupational status: retired Cognitive needs: No Hearing needs: No Vision needs: Yes Questionnaire PHQ-9 Over the last 2 weeks, how often have you been bothered by any of the following problems? 1. Little interest or pleasure in doing things: not at all 2. Feeling down, depressed, or hopeless: not at all 3. Trouble falling or staying asleep, or sleeping too much: not at all 4. Feeling tired or having little energy: not at all 5. Poor appetite or overeating: not at all 6. Feeling bad about yourself - or that you are a failure or have let yourself or your family down: not at all 7. Trouble concentrating on things, such as reading the newspaper or watching television: not at all 8. Moving or speaking so slowly that other people could have noticed. Or the opposite - being so fidgety or restless that you have been moving around a lot more than usual: not at all 9. Thoughts that you would be better off or of hurting yourself in some way: not at all Total score: 0 Depression Screening Interpretation: Negative Depression Screening Done: Yes Source: Developed by Drs. Jorge Be, Nicole Rodriguez, Deon Malcolm and colleagues, with an educational michael from [employer]. Thrive Questionnaire Date Thrive assessed: 05/14/24 I am a: Patient What is your living situation today?: I have a steady place to live Within the past 12 months, did the food you bought not last and you didn't have the money to get more?: Never true Within the past 12 months, did you worry whether your food would run out before you got money to buy more?: Never true Do you have trouble paying for medicines?: No Do you have trouble getting transportation to medical appointments?: No Do you have trouble paying your heating and electricity bill?: No Do you have trouble taking care of your child, family member or friend?: No Do you have trouble with day-to-day activities such as bathing, preparing meals, shopping, managing finances, etc.?: No Are you currently unemployed and looking for a job?: No Are you interested in more education?: No Please select the resources that you would like help with: None Currently or been in a relationship where the following occur: No concerns reported THRIVE Score: 0 AUDIT C Alcohol Use Questionnaire (AUDIT-C) 1. How often do you have a drink containing alcohol?: Monthly or less Total Score: 1 SAGE-7 AMB Questionnaire SAGE-7 Date SAGE - 7 assessed: 05/17/24 Source: Developed by Drs. Jorge Be, Nicole Rodriguez, Deon Malcolm and colleagues, with an educational michael from [employer]. Review of Systems Const All systems reviewed & are unremarkable except as noted in HPI and below Denies fatigue, Denies headache(s) and Denies weakness Eyes Details: Goes to [facility] for her diabetes retinopathy screening, goes yearly Denies change in vision, Denies eye discharge and Denies itchy eyes ENT Denies dizziness, Denies headache(s), Denies nasal congestion, Denies nasal discharge and Denies sore throat Card Denies chest pain, Denies lightheadedness, Denies palpitations and Denies dyspnea Resp Denies chest congestion, Denies cough, Denies dyspnea and Denies wheezing GI Denies abdominal pain, Denies change in bowel habits and Denies heartburn Denies urinary frequency, Denies dysuria and Denies urinary urgency Musc Reports arthralgias (Mainly in wrists), Denies joint swelling and Denies muscle weakness Skin/Breast Denies lesions and Denies rash Neuro Denies dizziness, Denies headache(s) and Denies weakness Psych Reports no additional complaints Endo Denies fatigue, Denies polydipsia, Denies polyuria and Denies palpitations Robson/Lymph Denies easy bleeding and Denies easy bruising Aller/Immun Denies itchy eyes, Denies seasonal rhinorrhea and Denies wheezing Physical exam (Primary Care) Vital Signs: Last Vital Signs Temp 98.1 F 11/23/24 11:56 Pulse 87 11/23/24 11:56 Resp 16 11/23/24 11:56 BP 112/64 11/23/24 11:56 Pulse Ox 97 11/23/24 11:56 Oxygen Delivery Method Room Air 11/23/24 11:56 BMI result Body Mass Index 26.3 Tobacco/Smoking Status: Tobacco use Status Tobacco use date assessed 11/23/24 11/23/24 11:40 Patient Tobacco Use Status Never used Tobacco 11/23/24 11:40 e-Cigarette/Vaping Use Never Used 11/23/24 11:40 PHQ-9: PHQ-9 Score PHQ-9: Total score 0 11/23/24 11:58 Depression Screening Interpretation: Negative Thrive Assessment: Date of Thrive Assessment Date Thrive assessed 05/14/24 11/23/24 11:40 Currently or been in a relationship where the following occur: No concerns reported Const General: no acute distress Orientation/consciousness: patient oriented x3 HENMT Mouth: Normal oral and palatal mucosa present, oropharynx normal and moist mucous membranes Eyes General: appearance normal, both eyes and all related structures Conjunctivae: conjunctivae normal Pupils: Equal, round and reactive pupils present EOM: EOMs intact bilaterally Neck Neck: Yes full ROM, Yes no lymphadenopathy and Yes supple Resp Effort & Inspection: normal respiratory effort and able to speak in complete sentences Auscultation: clear to auscultation bilaterally Cardio Rate: regular rate Rhythm: regular rhythm Heart sounds: S1 normal heart sound present and S2 normal heart sound present GI Inspection: Yes normal to inspection Palpation (GI): Soft to palpation, nontender and no masses Auscultation: normal bowel sounds Back/Spine/Pelvis Back: No back tenderness Skin General skin exam: no rashes or lesions noted Neuro General: patient oriented x3, gait normal, tone normal, moves all extremities, Normal light touch and pain sensation, no focal motor deficits and normal sensation to monofilament Cranial nerves: Yes Equal, round and reactive pupils present Cognition (Neuro): normal cognition Gait exam (Neuro): Normal gait present Motor exam (neuro): 5/5 motor strength present throughout Extrem General: Yes full ROM, Yes no joint enlargement, Yes no clubbing, cyanosis or edema, Yes no calf tenderness and Yes normal gait Psych Appearance: well kempt Mental Status: mental status grossly normal Speech and movement: Normal speech and movement present Affect: normal affect Results Reviewed Results Reviewed: Name: Annmarie Jefferson Age/Sex: 69/F : 1955 Unit#: [id number] Attend Dr: Karen Thompson MD Re11/22/24 Status: DEP [facility] Disch: SPEC : [id number] NEIDA: 11/22/24 STATUS: COMP REQ : [id number] RECD: 11/22/[address]: Karen Thompson MD COMP: 11/22/24 ENTERED: 11/22/[address]: ORDERED: Met Prof Fast, Vitamin D 25-OH Test Result Flag Reference Sodium 140 135-145 mmol/L Potassium 4.4 3.3-5.1 mmol/L CL 105 96-108 mmol/L CO2 27 22-29 mmol/L Gap 12 12-20 BUN 17 H 9-16 mg/dL Creat 0.74 0.5-1.4 mg/dL eGFR > 60 Chronic Kidney Disease: Estimated GFR < 60 mL/min/1.73m2 Severe Kidney Disease: Estimated GFR < 15 mL/min/1.73m2 FBS 146 H 60-99 mg/dL A fasting glucose of 126 mg/dl or greater on more than one occasion is considered diagnostic of diabetes. CA 9.3 8.4-10.2 mg/dL Vitamin D 25-OH 73.3 >30 ng/mL Health Based Reference Values* < 20 ng/mL Deficient 20-30 ng/mL Insufficient > 30 ng/mL Sufficient Laboratory Tests 05/16/24 11/22/24 10:55 08:00 Estimat Average Glucose 171 Hemoglobin A1c % 7.6 H Urine Creatinine 103.33 Urine Microalbumin 17.0 Microalb/Creat Ratio 16.4 Coding Level of Care Code Est Pt Level 4 (96125) Complex EM visit Add On G2211 Diagnoses Diabetes mellitus with hyperglycemia, without long-term current use of insulin E11.65 Essential hypertension I10 Dyslipidemia E78.5 Assessment & Plan Assessment & Plan (1) Diabetes mellitus with hyperglycemia, without long-term current use of insulin: Code(s): E11.65 - Type 2 diabetes mellitus with hyperglycemia Category: Medical Plan: Diabetes mellitus control not at goal. Continued on metformin 1000 mg 1 tablet twice a day and Jardiance 25 mg daily, Januvia 100 mg daily. Offered to start on GLP 1 agonist for better control of diabetes but patient does not want to do any injections. Would like to try again improving diabetes control through diet and exercise in addition to medication. Will check fasting labs including hemoglobin A1c in 3 months. (2) Essential hypertension: Code(s): I10 - Essential (primary) hypertension Category: Medical Plan: Blood pressure at goal of less than 130/80. Continue with current medication. Reinforced importance of following a low sodium diet, getting regular exercise, and lowering stress levels. (3) Dyslipidemia: Code(s): E78.5 - Hyperlipidemia, unspecified Category: Medical Plan: Lipids well controlled on rosuvastatin 5 mg daily Orders: Orders Lipid Panel 02/11/25 E11.65 - Type 2 diabetes mellitus with hyperglycemia, E78.5 - Hyperlipidemia, unspecified, I10 - Essential (primary) hypertension Aspartate Amino Transferase 02/11/25 E11.65 - Type 2 diabetes mellitus with hyperglycemia, E78.5 - Hyperlipidemia, unspecified, I10 - Essential (primary) hypertension Alanine Aminotransferase 02/11/25 E11.65 - Type 2 diabetes mellitus with hyperglycemia, E78.5 - Hyperlipidemia, unspecified, I10 - Essential (primary) hypertension Hemoglobin A1c 02/11/25 E11.65 - Type 2 diabetes mellitus with hyperglycemia, E78.5 - Hyperlipidemia, unspecified, I10 - Essential (primary) hypertension Basic Metabolic Panel Fasting 02/11/25 E11.65 - Type 2 diabetes mellitus with hyperglycemia, E78.5 - Hyperlipidemia, unspecified, I10 - Essential (primary) hypertension Vitamin D 25-OH Total 02/11/25 E11.65 - Type 2 diabetes mellitus with hyperglycemia, E78.5 - Hyperlipidemia, unspecified, I10 - Essential (primary) hypertension
[2024-11-23 11:56] VITALS: BP 112/64; PULSE 87; RESP 16; TEMP 36.7; O2SAT 97; BMI 26.3
== END 2024-11-23 12:13 | disposition home or self-care (01) ==
LOC: HO.HMCC 11:37
PROVIDERS: PCP Internal Medicine; Visit Provider Internal Medicine
DX: E11.65 Type 2 diabetes mellitus with hyperglycemia (principal); I10 Essential (primary) hypertension; E78.5 Hyperlipidemia, unspecified

== ENCOUNTER → 2024-11-23 11:36 | Outpatient (BNVA) | payer MEDICARE, OTHER, SELFPAY | PROVIDERS: PCP Internal Medicine; Visit Provider Internal Medicine | DX: E11.65 Type 2 diabetes mellitus with hyperglycemia (principal); I10 Essential (primary) hypertension; E78.5 Hyperlipidemia, unspecified; Z79.84 Long term (current) use of oral hypoglycemic drugs; Z79.899 Other long term (current) drug therapy | CPT/HCPCS: 96127; 99212 ==